=== PATIENT | female | born 1965 | race Caucasian/White ===

== ENCOUNTER 2025-01-22 10:37 | Outpatient (AMB) | payer MEDICAID, SELFPAY ==
[2025-01-22 10:48] VITALS: BP 119/78; PULSE 79; RESP 18; TEMP 36.3; O2SAT 97; BMI 32.1
--- NOTE | 2025-01-22 10:48 | PD.GSCLVISIT ---
Vital Signs - [facility] 01/22/25 10:48 Height 1.69 m Height Method Stated Weight 91.682 kg Weight Measurement Method Standing Scale BMI 32.1 BP 119/78 Blood Pressure Source Automatic Cuff Blood Pressure Location Left Upper Arm Position Sitting Respiration 18 Pulse 79 Pulse Source Monitor Temp 97.3 F Temp Source Temporal Artery Scan Pulse Oximetry (%) 97 Oxygen Delivery Method Room Air Med/Allergies Allergies & Medications Allergies bee venom protein (honey bee) Allergy (Severe, Verified 01/22/25 10:49) Hives Penicillins Allergy (Severe, Verified 01/22/25 10:49) Swelling of Lip/Tongue/Throat Medication Reconciliation cholecalciferol (vitamin D3) 250 mcg (10,000 unit) capsule 10,000 unit PO QWEEK #10 caps 07/15/23 [Rx Confirmed 01/22/25] carvedilol 3.125 mg tablet 3.125 mg PO BID 09/27/23 [History Confirmed 01/22/25] gabapentin 100 mg capsule 100 mg PO QDAY 09/27/23 [History Confirmed 01/22/25] glipizide 5 mg tablet 5 mg PO QDAY 09/27/23 [History Confirmed 01/22/25] hydrochlorothiazide 25 mg tablet 25 mg PO QDAY 09/27/23 [History Confirmed 01/22/25] losartan 100 mg tablet 100 mg PO QDAY 09/27/23 [History Confirmed 01/22/25] omeprazole 20 mg capsule,delayed release 20 mg PO QDAY 09/27/23 [History Confirmed 01/22/25] potassium chloride 20 mEq tablet,extended release(part/cryst) 20 meq PO QDAY 09/27/23 [History Confirmed 01/22/25] acetaminophen 500 mg tablet 500 mg PO Q6H PRN 01/22/25 [History Confirmed 01/22/25] atorvastatin 20 mg tablet 20 mg PO QDAY 01/22/25 [History Confirmed 01/22/25] budesonide 0.5 mg/2 mL suspension for nebulization 0.5 mg inhalation QDAY 01/22/25 [History Confirmed 01/22/25] cetirizine 10 mg tablet 10 mg PO QDAY PRN 01/22/25 [History Confirmed 01/22/25] empagliflozin 5 mg-metformin 500 mg tablet (Synjardy) 1 tab PO BID 01/22/25 [History Confirmed 01/22/25] mirabegron 50 mg tablet,extended release 24 hr (Myrbetriq) 50 mg PO QDAY 01/22/25 [History Confirmed 01/22/25] montelukast 10 mg tablet 10 mg PO QDAY 01/22/25 [History Confirmed 01/22/25] mupirocin 2 % topical ointment 1 applic topical BID 01/22/25 [History Confirmed 01/22/25] semaglutide 1 mg/dose (4 mg/3 mL) subcutaneous pen injector (Ozempic) 1 mg subcut QWEEK 01/22/25 [History Confirmed 01/22/25] theophylline 300 mg tablet,extended release,12 hr 300 mg PO Q12H 01/22/25 [History Confirmed 01/22/25] MA Intake Visit Data Collection New Patient or Established: Established Patient (seen at [facility] within 3 years) Reason for Visit:: GALLSTONES Pain Present Currently: Yes Pain Location: Abdomen Pain scale:: 9 Pain Scale Used: Luong-Gardner/Numerical Laboratory Equipment Installer Required: No PCP or OBGYN visit in last 3 months: Yes Do You Feel Safe at Home: Yes Smoking Status Smoking Status: Never smoker Immunization / Flu Flu Vaccine in the Last 12 Months: No Flu Vaccine Exclusion Criteria: No Exclusion Criteria Past Medical History Past Medical History CARDIAC: Negative Congestive Heart Failure RESPIRATORY: Positive Asthma; Negative Chronic Obstructive Pulmonary Disease (COPD) GENITOURINARY: Negative Renal Disease ENDOCRINE: Negative Diabetes Mellitus Type 1 or Diabetes Mellitus Type 2 OTHER HISTORY: Negative Autoimmune Disease Family History FAMILY HISTORY: Negative Family Psychiatric Problems, Family Respiratory Disorders, Family Cardiac Disorders, Family Gastrointestinal Problems, Family Cancer, Family Surgery or Family Anesthesia Reaction Social History SMOKING STATUS: Smoking status: Never smoker SECOND HAND EXPOSURE: second hand exposure: No ALCOHOL: Alcohol Intake: Never HPI HPI Narrative 59F with HTN, HLD, DMII, obesity, asthma on O2 at home, KERWIN on CPAP here for follow up of cholelithiasis. I saw pt in 09/2023 for the same and recommended pulmonary follow up before proceeding with surgery; per referral and pt she has been seen by a Refrigerator Assembler and deemed an acceptable risk for surgery. Meanwhile pt feels her pain is worse, mostly in the epigastrium but also RUQ, and it is constant not necessarily related to eating PMH: HTN, HLD, DMII, asthma on O2 at home, KERWIN on CPAP PSHx: Appendectomy, Hysterectomy, hernia repairs, bladder lift Meds: includes ASA 81, no other antiplt or anticoagulation Allergies: PCN Social hx: nonsmoker, not able to walk a block or up a flight of stairs due to dyspnea ROS Review of Systems Systems Reviewed: All systems reviewed, normal except as documented Objective/Exam General General Appearance: alert, cooperative and well groomed Resp Respiratory exam: Absent respiratory distress Abdominal Abdominal exam: Present soft and scar (Pfannenstiel incision healed); Absent distention or tenderness Results US reviewed Assessment & Plan Diagnosis / Problem List (1) Symptomatic cholelithiasis: Status: Acute Assessment & Plan: 59F with HTN, HLD, DMII, obesity, asthma on O2 at home, KERWIN on CPAP here for follow up of cholelithiasis. As she has acceptable risk per pulmonology and persistent symptoms I explained that surgery is a reasonable option. I enumerated benefits/risks including need for conversion to open, bleeding, infection, hernia, postoperative diarrhea, and injury to nearby structures requiring further procedures or in the most extreme case a major biliary reconstruction which would require transfer to another hospital. All questions were answered and pt is agreeable to proceeding Office Procedures GNS Level of Care Nursing/Assessment Patient Status: Established Patient Nursing Assessment/Reassesment: Medication Reconciliation, Update PMH in EMR and Vital Signs Coordination of Care: Complex Care/Chronic Disease 5 or more, Education Complex Pt/Fam, Consent,records obtained, informed consent, Results/Orders obtained and Staff clarify orders New Patient Charge New Patient Point Charge: DIRECTOR PHARMACOLOGY Level 3 (4036-1048) Established Patient Charge Established Patient Point Assignment: 105 Patient Portal Questionaires Social History Tobacco History Smoking Status: Never smoker Second Hand Smoke Exposure: No Alcohol History Alcohol Intake: Never Domestic Abuse History Do You Feel Safe at Home: Yes Review of Systems Report any current symptoms Only answer those that you have currently: Past Medical History Past Medical History Have you ever been diagnosed with any of the following: Cardiology Problems Congestive Heart Failure: No Respiratory Problems Chronic Obstructive Pulmonary Disease (COPD): No Asthma: Yes Genital/Urinary Problems Renal Disease: No Endocrine Problems Diabetes Mellitus Type 1: No Diabetes Mellitus Type 2: No Other Problems Autoimmune Disease: No
== END 2025-01-22 11:24 | disposition home or self-care (01) ==
LOC: HODSRG 10:37
PROVIDERS: PCP Family Medicine; Referring Provider Family Medicine; Supervising Provider Surgery; Visit Provider Surgery
DX: K80.20 Calculus of gallbladder without cholecystitis without obstruction (principal); I10 Essential (primary) hypertension; E11.9 Type 2 diabetes mellitus without complications; E66.9 Obesity, unspecified; Z68.32 Body mass index [BMI] 32.0-32.9, adult; J45.909 Unspecified asthma, uncomplicated; Z99.81 Dependence on supplemental oxygen
CPT/HCPCS: 99203; G0463

== ENCOUNTER 2025-02-07 06:55 | Day surgery (SDC) | payer MEDICAID, SELFPAY ==
--- NOTE | 2025-02-06 06:00 | EKG_ITS ---
[facility] Test Date: 2025-02-06 Pat Name: SUSANA PAREKH Department: Room: - Gender: Female Documentation Supervisor: DAVID : [id number] Requested By: Suhas Beltran Order Number: [id number] Reading MD: Suhas Beltran Measurements Intervals Harwood Rate: 87 P: 31 DE: 133 QRS: -23 QRSD: 84 T: 34 QT: 330 QTc: 399 Interpretive Statements SINUS RHYTHM LOW QRS VOLTAGE IN PRECORDIAL LEADS [QRS DEFLECTION < 1.0 mV IN CHEST LEADS] POSSIBLE ANTERIOR MYOCARDIAL INFARCTION , OF INDETERMINATE AGE [30 ms Q WAVE IN V3/V4, OR R < 0.2 mV IN V4] Compared to ECG 02/21/2024 17:09:42 Low QRS voltage now present Myocardial infarct finding now present Sinus tachycardia no longer present /store/S0/[id number]/ecg/[id number].pdf
[2025-02-06 08:44] VITALS: BMI 33.9
[2025-02-06 09:52] LABS: Basophils % (Auto) 0 % (0-2.5); Eosinophils # (Auto) 0.2 Thou/mm3 (0.0-0.5); Eosinophils % (Auto) 3 % (0-10); Hematocrit 45.2 % (36.0-46.0); Hemoglobin 14.5 g/dL (12.0-16.0); Immature Granulocytes % (Auto) 0 % (0-0); Immature Granulocytes Auto 0.02 Thou/mm3 (0.00-0.00); Lymphocytes # (Auto) 1.4 Thou/mm3 (1.0-4.8); Lymphocytes % (Auto) 19 % (10-50); Mean Corpuscular HGB Conc 32.1 g/dl (31.0-37.0); Mean Corpuscular Hemoglobin 25.2 pg (25.0-35.0); Mean Corpuscular Volume 79 fL (80-100); Monocytes # (Auto) 0.5 Thou/mm3 (0.0-0.8); Monocytes % (Auto) 7 % (0-12); Neutrophils # (Auto) 5.3 Thou/mm3 (1.8-7.7); Neutrophils % (Auto) 71 % (37-80); Nucleated Red Blood Cell % 0 /100 WBC (0); Platelet Count 235 Thou/mm3 (140-440); RDW Standard Deviation 41.1 fL (36.4-46.3); Red Blood Count 5.76 Miln/mm3 (4.00-5.20); White Blood Count 7.5 Thou/mm3 (3.6-11.0)
[2025-02-06 10:22] LABS: Alanine Aminotransferase 18 U/L (10-49); Albumin, Serum 4.7 gm/dL (3.4-4.8); Albumin/Globulin Ratio 2.8 (1.2-2.2); Alkaline Phosphatase 88 U/L (46-116); Anion Gap 9 (7-16); Aspartate Amino Transferase 18 U/L (0-34); BUN/Creatinine Ratio 13 Ratio (12-20); Bilirubin,Total 0.7 mg/dL (0.3-1.2); Blood Urea Nitrogen 12 mg/dL (9-23); Carbon Dioxide 31.4 mMol/L (20.0-31.0); Chloride 99 mMol/L (98-107); Creatinine (Component) 0.9 mg/dL (0.6-1.3); Estimated Creatinine Clearance 73.8 mL/min (>60); Globulin 1.7 gm/dL (2.3-3.5); Glucose 160 mg/dL (74-106); Osmolality,Calculated 280 (275-295); Potassium 3.5 mMol/L (3.4-5.1); Sodium 139 mMol/L (136-145); Total Protein 6.4 gm/dL (5.7-8.2); eGFR > 60 See Note
[2025-02-06 10:40] LABS: INR 0.9 (0.9-1.3); Partial Thromboplastin Time 26.2 Seconds (22.0-36.0); Prothrombin Time 10.3 Seconds (9.0-12.2)
[2025-02-07] VITALS (9 sets, daily range): BP systolic 113–134; BP diastolic 65–87; PULSE 69–79; RESP 14–20; TEMP 36.5–36.9; O2SAT 95–100; BMI 34.6
[2025-02-07] MEDS: RINGERS LACTATED 1000 ML 1,000 ML 20 ML IV (08:33)
[2025-02-07] MEDS: ALBUTEROL/IPRATROPIUM (Duoneb) RT SOL 3 ML NEBU INH (08:46)
--- NOTE | 2025-02-07 10:01 | ESOP_ITS ---
Date of Procedure 02/07/25 Pre Op Diagnosis Symptomatic cholelithiasis Post Op Diagnosis Same Procedure Laparoscopic cholecystectomy Findings Distended gallbladder Procedure Description After discussion of risks and benefits, patient was brought to the operating room, SCDs were placed and general anesthesia was induced. She received preope rative antibiotics and was prepped and draped in usual sterile fashion. After timeout a supraumbilical incision was made with a #15 blade and then skin was elevated with towel clamps. A Veress needle was placed through the incision and proper positioning was confirmed with a drop test. It the abdomen was insufflated to 15 mmHg at which point the Veress was exchanged for a 5 mm camera using Visiport technique. There were no signs of injury from the point of entry. 3 additional ports were placed under direct vision, one 12 mm at the epigastrium, one 5 mm right subcostal and one 5 mm right anterior axillary line. Patient was placed in reverse Trendelenburg. The fundus of the gallbladder was grasped and retracted cephalad and the infundibulum was grasped retracted laterally. Blunt dissection was undertaken and the critical view of safety was achieved. The cystic duct and cystic artery were clipped and transected in the usual fashion. There was a small accessory artery at the right sided aspect of the gallbladder bed which began bleeding during the dissection of the gallbladder but it was controlled with clipping. The gallbladder was removed from the gallbladder bed using electrocautery. Hemostasis of the gallbladder bed was achieved with electrocautery and reinforced with Surgicel powder. The specimen was removed in an Endo Catch bag via the epigastric port and the ep igastric fascia was closed with a 0 Vicryl suture using a Pop-Erinn. Pneumoperitoneum was released and ports were removed under direct vision. Incisions were irrigated and infiltrated with half percent Marcaine for a total of 30 cc. Incisions were closed with 4 Monocryl. Patient was extubated and brought to PACU in stable condition Pathology / specimen Other (Gallbladder) Estimated Blood Loss 50 Surgeon Reina Amador MD Surgical Staff Operation Date: 02/07/25 09:15 <No data on this case meets the specified criteria>
--- NOTE | 2025-02-07 10:06 | PD.SURDS ---
Planned Discharge Date 02/07/25 DS: Providers Provider Primary care physician: Kelsey Santos MD Attending Provider on Admission: Reina Amador MD Attending Provider on DC: Reina Amador MD Discharging Provider: Reina Amador MD Diagnosis Discharge Diagnosis (1) Symptomatic cholelithiasis: Status: Acute Problem List Completed Was Problem List Reviewed/Reconciled?: Yes Exam Vital Signs Temp Pulse Resp BP Pulse Ox 97.9 F 76 15 134/75 H 98 02/07/25 07:59 02/07/25 07:59 02/07/25 07:59 02/07/25 07:59 02/07/25 07:59 Discharge Plan Plan Patient Disposition: HOME (Self Care) Prescriptions/Referrals Prescriptions/Med Rec: New oxycodone-acetaminophen [Percocet] 5-325 mg tablet 1 tab PO Q6H MDD 6 tabs PRN (Reason: pain) Qty: 10 0RF Rx Instructions: Take 1 tablet every 4-6 hours as needed for moderate to severe pain No Action atorvastatin 20 mg tablet 20 mg PO QDAY budesonide 0.5 mg/2 mL suspension for nebulization 0.5 mg inhalation BID cetirizine 10 mg tablet 10 mg PO QDAY mirabegron [Myrbetriq] 50 mg tablet extended release 24 hr 50 mg PO QDAY Ozempic 1 mg/dose (4 mg/3 mL) pen injector 1 mg subcut QWEEK montelukast 10 mg tablet 10 mg PO QDAY theophylline 300 mg tablet extended release 12 hr 300 mg PO DAILY acetaminophen 500 mg tablet 500 mg PO Q6H PRN (Reason: pain) glipizide 5 mg tablet 5 mg PO QDAY gabapentin 100 mg capsule 100 mg PO Q12H potassium chloride 20 mEq tablet,ER particles/crystals 20 meq PO QDAY omeprazole 20 mg capsule,delayed release(DR/EC) 40 mg PO QDAY hydrochlorothiazide 25 mg tablet 25 mg PO QDAY losartan 100 mg tablet 100 mg PO QDAY aspirin 81 mg tablet,delayed release (DR/EC) 81 mg PO DAILY Patient Comments: TAKE 1 TABLET BY MOUTH EVERY DAY carvedilol [Coreg] 6.25 mg tablet 6.25 mg PO BID Rx Instructions: must administer with a meal/food umeclidinium-vilanterol [Anoro Ellipta] 62.5-25 mcg/actuation blister with device 1 inh inhalation QDAY albuterol sulfate 90 mcg/actuation HFA aerosol inhaler 2 inh INHALATION Q4H PRN (Reason: shortness of breath or wheezing) cholecalciferol (vitamin D3) 250 mcg (10,000 unit) capsule 10,000 unit PO QWEEK Qty: 10 0RF Referrals: Kelsey Santos MD [Primary Care Provider] - Reina Amador MD [Physician] - (You will receive a phone call to confirm a follow-up appointment with me in 2 weeks) Patient/Caregiver Discharge Instructions Other Discharge Activity Instructions:: You may resume showering in 2 days, on 02/09 Otherwise keep incisions clean and dry Avoid bathing or swimming for 2 weeks Avoid lifting objects greater than 10 pounds for 6 weeks Your incisions have skin glue on them which will fall off on its own and does not need to be replaced Your stitches will not need to be removed During the surgery we fill your abdomen with air in order to see the structures. Some of this air tends to linger and cause pain that is referred to the shoulder as well as pain with deep breaths. This will improve over the next days to weeks. Being out of bed and walking helps the air to absorb faster If you develop worsening pain, nausea/vomiting, fever or jaundice please seek care in ER Education Materials: Preventing Surgical Site Infections Print Language: Colombian Stand Alone Forms: Toya Award Info., Patient Portal Info Letter Discharge Order Discharge Orders: Discharge (Routine); Ordered 02/07/25 Ordered By: Reina Amador Results Results: Laboratory Laboratory results: results reviewed Procedures Procedure Date 02/07/25 Procedures Laparoscopic cholecystectomy
--- NOTE | 2025-02-07 10:10 | SUR.PHASEI ---
pt received from OR in recovery bay 7. pt asleep but responds to voice, breathing unlabored on oxymask 8l. v/s stable. pt dressing to abd dermabond x4 cdi. report received from Ciara JAUREGUI and Kevin CANO.
[2025-02-07] MEDS: HYDROmorphone INJ 2 MG/ML VIAL 0.5 MG IVP (10:36)
[2025-02-07] MEDS: fentaNYL CIT INJ 50 mCg/ML AMP 2ML IVP (10:52)
[2025-02-07] MEDS: fentaNYL CIT INJ 50 mCg/ML AMP 2ML 25 MCG IVP (11:21)
--- NOTE | 2025-02-07 11:42 | SUR.PHASEII ---
pt awake and alert, breathing unlabored on room air. v/s stable. pt dressing to abd dermabond x4 cdi. pt able to ambulate to wheelchair with steady gait. d/c instructions given with property caretaker Lauro in room, all questions answered. pt d/c via wheelchair with all belongings.
== END 2025-02-07 11:42 | disposition home or self-care (01) ==
PROVIDERS: Anesthesiology; PCP Internal Medicine; Referring Provider Surgery; Visit Provider Surgery
PROC: 0FT44ZZ Resection of Gallbladder, Percutaneous Endoscopic Approach (ICD-10-PCS; CPT 47562; principal; 2025-02-07 09:00)
DX: K80.10 Calculus of gallbladder with chronic cholecystitis without obstruction (principal); Z01.810 Encounter for preprocedural cardiovascular examination
CPT/HCPCS: 47562; 36415; 80053; 85025; 85610; 85730; 93005; A4217; A4649; A9270; J0131; J0330; J0736; J1100; J1171; J2371; J2405; J2704; J3010; J3490; J7120

== ENCOUNTER 2025-02-15 18:23 | Emergency (ER) | payer MEDICAID, SELFPAY ==
[2025-02-15 19:21] VITALS: BP 127/78; PULSE 83; RESP 18; TEMP 36.6; O2SAT 96
--- NOTE | 2025-02-15 19:34 | PD.EDRME ---
Rapid Medical Screening Exam [facility] Arrival date/time: 02/15/25 18:23 59F with history of DM and recent cholecystectomy presents to ED with fevers/chills and worsening pain and incision site. Chief Complaint: General Adult/Misc Complain Vital signs: Vital Signs Temperature 97.9 F 02/15/25 19:21 Pulse Rate 83 02/15/25 19:21 Respiratory Rate 18 02/15/25 19:21 Blood Pressure 127/78 02/15/25 19:21 Pulse Oximetry (%) 96 02/15/25 19:21 Oxygen Delivery Method Room Air 02/15/25 19:21
[2025-02-15 20:00] LABS: Lactate (Lactic Acid) 1.1 mMol/L (0.4-2.0)
[2025-02-15 20:02] LABS: Basophils # (Auto) 0.1 Thou/mm3 (0.0-0.2); Basophils % (Auto) 1 % (0-2.5); Eosinophils # (Auto) 0.6 Thou/mm3 (0.0-0.5); Eosinophils % (Auto) 6 % (0-10); Hematocrit 41.7 % (36.0-46.0); Immature Granulocytes % (Auto) 1 % (0-0); Immature Granulocytes Auto 0.05 Thou/mm3 (0.00-0.00); Lymphocytes # (Auto) 2.6 Thou/mm3 (1.0-4.8); Lymphocytes % (Auto) 23 % (10-50); Mean Corpuscular HGB Conc 33.6 g/dl (31.0-37.0); Mean Corpuscular Hemoglobin 25.3 pg (25.0-35.0); Mean Corpuscular Volume 75 fL (80-100); Monocytes # (Auto) 0.9 Thou/mm3 (0.0-0.8); Monocytes % (Auto) 9 % (0-12); Neutrophils # (Auto) 6.8 Thou/mm3 (1.8-7.7); Neutrophils % (Auto) 62 % (37-80); Nucleated Red Blood Cell % 0 /100 WBC (0); Platelet Count 262 Thou/mm3 (140-440); RDW Standard Deviation 39.5 fL (36.4-46.3); Red Blood Count 5.54 Miln/mm3 (4.00-5.20); White Blood Count 11.1 Thou/mm3 (3.6-11.0)
[2025-02-15 20:30] LABS: Alanine Aminotransferase 23 U/L (10-49); Albumin, Serum 4.5 gm/dL (3.4-4.8); Albumin/Globulin Ratio 2.3 (1.2-2.2); Alkaline Phosphatase 91 U/L (46-116); Anion Gap 8 (7-16); Aspartate Amino Transferase 18 U/L (0-34); BUN/Creatinine Ratio 13 Ratio (12-20); Bilirubin,Total 0.6 mg/dL (0.3-1.2); Blood Urea Nitrogen 13 mg/dL (9-23); Calcium 9.4 mg/dL (8.3-10.6); Calcium (Corrected) 9.4 mg/dL (8.5-10.1); Carbon Dioxide 30.8 mMol/L (20.0-31.0); Chloride 102 mMol/L (98-107); Glucose 78 mg/dL (74-106); Osmolality,Calculated 280 (275-295); Potassium 3.4 mMol/L (3.4-5.1); Procalcitonin < 0.04 ng/ml (0.0-0.49); Sodium 141 mMol/L (136-145); Total Protein 6.5 gm/dL (5.7-8.2); eGFR > 60 See Note
--- NOTE | 2025-02-15 22:22 | PD.EDFEVER ---
ED Fever RME/HPI General Chief Complaint: General Adult/Misc Complain Stated Complaint: [facility] @ [facility]; FEVER 100.6 THIS AFTERNOON Arrival date/time: 02/15/25 18:23 RME / HPI RME / HPI Narrative: 02/15/25 18:23 59F with history of DM and recent cholecystectomy presents to ED with fevers/chills and worsening pain and incision site. --------- Dr. Varner?s Main ED Evaluation: 59yo female with a history of DMII, HTN, HLD, s/p cholecystectomy on 02/07/25 presents to the ED for a chief complaint of worsening pain to her incision site. Patient states she started noticing her incision site was turning red today, reporting she was concerned it started to drain, so she came in for evaluation. Patient reports associated fever, diarrhea (that has gotten better), and a chronic cough. Patient denies any chills, shortness of breath, chest pain, worsening abdominal pain, UTI symptoms or any other associated symptoms. Related Data Home Medications ?Medication ?Instructions ?Recorded ?Confirmed gabapentin 100 mg capsule 100 mg PO Q12H 09/27/23 02/07/25 glipizide 5 mg tablet 5 mg PO QDAY 09/27/23 02/07/25 hydrochlorothiazide 25 mg tablet 25 mg PO QDAY 09/27/23 02/07/25 losartan 100 mg tablet 100 mg PO QDAY 09/27/23 02/07/25 omeprazole 20 mg capsule,delayed 40 mg PO QDAY 09/27/23 02/07/25 release potassium chloride 20 mEq 20 meq PO QDAY 09/27/23 02/07/25 tablet,extended release(part/cryst) acetaminophen 500 mg tablet 500 mg PO Q6H PRN pain 01/22/25 02/07/25 atorvastatin 20 mg tablet 20 mg PO QDAY 01/22/25 02/07/25 budesonide 0.5 mg/2 mL suspension 0.5 mg inhalation BID 01/22/25 02/07/25 for nebulization cetirizine 10 mg tablet 10 mg PO QDAY 01/22/25 02/07/25 mirabegron 50 mg tablet,extended 50 mg PO QDAY 01/22/25 02/07/25 release 24 hr (Myrbetriq) montelukast 10 mg tablet 10 mg PO QDAY 01/22/25 02/07/25 semaglutide 1 mg/dose (4 mg/3 mL) 1 mg subcut QWEEK 01/22/25 02/06/25 subcutaneous pen injector (Ozempic) theophylline 300 mg 300 mg PO DAILY 01/22/25 02/07/25 tablet,extended release,12 hr albuterol sulfate 90 mcg/actuation 2 inh inhalation Q4H PRN shortness 02/06/25 02/07/25 aerosol inhaler of breath or wheezing aspirin 81 mg tablet,delayed 81 mg PO DAILY 02/06/25 02/07/25 release carvedilol 6.25 mg tablet (Coreg) 6.25 mg PO BID 02/06/25 02/07/25 umeclidinium 62.5 mcg-vilanterol 1 inh inhalation QDAY 02/06/25 02/07/25 25 mcg/actuation powdr for inhalation (Anoro Ellipta) Previous Rx's ?Medication ?Instructions ?Recorded cholecalciferol (vitamin D3) 250 10,000 unit PO QWEEK #10 caps 07/15/23 mcg (10,000 unit) capsule oxycodone-acetaminophen 5 mg-325 1 tab PO Q6H PRN pain #10 tabs 02/07/25 mg tablet (Percocet) Lactobacillus acidophilus 1 1,000 mmu cells PO QDAY #30 caps 02/14/25 billion cell capsule doxycycline hyclate 100 mg tablet 100 mg PO QDAY cellulitis #6 tabs 02/14/25 oxycodone-acetaminophen 5 mg-325 1 tab PO Q6H PRN pain #20 tabs 02/14/25 mg tablet (Percocet) Allergies Allergy/AdvReac Type Severity Reaction Status Date / Time bee venom protein (honey bee) Allergy Severe Hives Verified 02/15/25 18:27 Penicillins Allergy Severe Swelling Verified 02/15/25 18:27 of Lip/Tongue/Throat Review of Systems Review of Systems Systems Reviewed: All systems reviewed, normal except as documented Past Medical History Past Medical History NEUROLOGIC: Negative Neurological Disorders or Seizures CARDIAC: Positive Cardiac Disorders, Hypercholesterolemia and Hypertension; Negative Congestive Heart Failure RESPIRATORY: Positive Chronic Obstructive Pulmonary Disease (COPD), Asthma, Pneumonia and Sleep Apnea GASTROINTESTINAL: Positive Gastrointestinal Disorders and Obesity; Negative Hepatitis GENITOURINARY: Negative Genitourinary Disorders or Renal Disease REPRODUCTIVE: Positive Previous Pregnancies (3) MUSCULOSKELETAL: Positive Musculoskeletal Disorders ENT: Positive Cataracts (right eye) ENDOCRINE: Positive Endocrine Disorders and Diabetes Mellitus Type 2; Negative Diabetes Mellitus Type 1 HEMATOLOGIC: Negative Blood Disorders OTHER HISTORY: Positive Hospitalization (Asthma), Developmental Delay (Mild intellectual disability) and Chicken Pox; Negative Autoimmune Disease, Shingles, Blood Transfusions, Anesthesia Reactions or Cancer Family History FAMILY HISTORY: Positive Family Cardiac Disorders and Family Surgery; Negative Family Psychiatric Problems, Family Respiratory Disorders, Family Gastrointestinal Problems, Family Cancer or Family Anesthesia Reaction Surgical History SURGICAL: Positive Abdominal Surgery and Tubal Ligation Social History SMOKING STATUS: Never smoker SECOND HAND EXPOSURE: No SUBSTANCE USE: does not use Physical Exam Narrative Physical exam: GENERAL APPEARANCE: alert and oriented x 4, well-developed, well-nourished, no acute distress VITALS: All vitals were reviewed and the pulse ox is 96% on room air, which is normal according to my interpretation. HEENT: Normocephalic, atraumatic; pupils equal, round, reactive to light; EOMI; mucous membranes pink, moist; oropharynx clear NECK: Supple LUNGS: CTABL; no wheezes, no rales, no rhonchi HEART: Regular rate, regular rhythm; normal S1, S2; no murmurs ABDOMEN: non distended; normal BS; soft, no tenderness, no guarding, no rebound; no masses, no organomegaly, no hernia BACK: no CVA tenderness EXTREMITIES: atraumatic; no edema NEUROLOGIC: awake; alert and oriented x4; cranial nerves II-XII grossly intact; no focal sensory or motor deficits PSYCHIATRIC: appropriate mood and affect SKIN: warm, dry, normal color; skin erythema at the area of the skin adhesive (from cholecystectomy) with minimal amount of serous fluid expressed Course Quality Measures none Orders Category Date Time Status Bedside COVID-19 Antigen Test NOW Care 02/15/25 19:33 Active Bedside Influenza A&B Antigen Test NOW Care 02/15/25 19:33 Completed CBC Stat Lab 02/15/25 19:44 Completed CMP [Comprehensive Metabolic Panel] Stat Lab 02/15/25 19:44 Completed Lactate (Lactic Acid) Stat Lab 02/15/25 19:44 Completed Procalcitonin Stat Lab 02/15/25 19:44 Completed Vital Signs Vital signs: Vital Signs Temperature 97.9 F 02/15/25 19:21 Pulse Rate 83 06/12/25 19:21 Respiratory Rate 18 02/15/25 19:21 Blood Pressure 127/78 02/15/25 19:21 Pulse Oximetry (%) 96 02/15/25 19:21 Oxygen Delivery Method Room Air 02/15/25 19:21 Fever MDM Narrative MDM Narrative:: Scribe Attestation: 02/15/25 - Shanta Sanchez am scribing for and in the presence of Dr. Varner. Patient does not meet sepsis/SIRS criteria at this time. She is not having any worsening abdominal pain and endorses her incisional pain is now controlled. Patient is stable to be discharged home. Patient data External records reviewed:: [facility] previous records (Per chart review, patient is s/p cholecystectomy on 02/07/25.) Clinical information provided by:: patient Social determinants that could affect healthcare access:: none Patient has the following chronic illnesses:: DMII, HTN, HLD How is presenting disease/condition affected by chronic disease/condition?: uneffected by Evaluation data The following diagnostics were reviewed and interpreted by me:: lab results Lab and/or radiology exams considered but not ordered:: none Interpretation Summary: WBC 11.1, CMP normal, Lactic Acid normal, Procalcitonin normal/ Medications / Prescriptions Medications or Prescriptions considered but not ordered:: none Medication administrations:: see above, if any Consultations Consultation(s) initiated? (list below): No Diagnosis Fever Differential Diagnosis: other (skin irritation, skin infection, post surgical infection, wound infection, abdominal abscess) Most likely diagnosis given after review of the tests above:: see clinical impression below Admission Indicated Admission indicated?: not indicated Explain why admission is indicated or not indicated:: Patient is stable to be discharged home. Patient does not meet sepsis criteria. Admission Request Was there a request for admission?: No Disposition Plan Disposition Plan: Discharge Discharge Attestation Discharge Attestation: The patient and all family members were given an opportunity to ask questions and understood the discharge instructions. Discharge instructions specifically effects, indications for sooner follow up or return to the emergency department, and the expected course of current diagnosis. Patient condition: Stable Discharge Plan Prescriptions/Referrals Prescriptions/Med Rec: No Action atorvastatin 20 mg tablet 20 mg PO QDAY budesonide 0.5 mg/2 mL suspension for nebulization 0.5 mg inhalation BID cetirizine 10 mg tablet 10 mg PO QDAY mirabegron [Myrbetriq] 50 mg tablet extended release 24 hr 50 mg PO QDAY Ozempic 1 mg/dose (4 mg/3 mL) pen injector 1 mg subcut QWEEK montelukast 10 mg tablet 10 mg PO QDAY theophylline 300 mg tablet extended release 12 hr 300 mg PO DAILY acetaminophen 500 mg tablet 500 mg PO Q6H PRN (Reason: pain) glipizide 5 mg tablet 5 mg PO QDAY gabapentin 100 mg capsule 100 mg PO Q12H potassium chloride 20 mEq tablet,ER particles/crystals 20 meq PO QDAY omeprazole 20 mg capsule,delayed release(DR/EC) 40 mg PO QDAY hydrochlorothiazide 25 mg tablet 25 mg PO QDAY losartan 100 mg tablet 100 mg PO QDAY aspirin 81 mg tablet,delayed release (DR/EC) 81 mg PO DAILY Patient Comments: TAKE 1 TABLET BY MOUTH EVERY DAY carvedilol [Coreg] 6.25 mg tablet 6.25 mg PO BID Rx Instructions: must administer with a meal/food umeclidinium-vilanterol [Anoro Ellipta] 62.5-25 mcg/actuation blister with device 1 inh inhalation QDAY albuterol sulfate 90 mcg/actuation HFA aerosol inhaler 2 inh INHALATION Q4H PRN (Reason: shortness of breath or wheezing) oxycodone-acetaminophen [Percocet] 5-325 mg tablet 1 tab PO Q6H MDD 6 tabs PRN (Reason: pain) Qty: 10 0RF Rx Instructions: Take 1 tablet every 4-6 hours as needed for moderate to severe pain Lactobacillus acidophilus 1 billion cell capsule 1,000 mmu cells PO QDAY Qty: 30 0RF doxycycline hyclate 100 mg tablet 100 mg PO QDAY Qty: 6 0RF Rx Instructions: Take two (2) tablets today, and then one tablet each day until completed oxycodone-acetaminophen [Percocet] 5-325 mg tablet 1 tab PO Q6H MDD 6 tabs PRN (Reason: pain) Qty: 20 0RF cholecalciferol (vitamin D3) 250 mcg (10,000 unit) capsule 10,000 unit PO QWEEK Qty: 10 0RF Referrals: Nilo Kern MD [Primary Care Provider] - In 1 week Patient/Caregiver Discharge Instructions Print Language: Belarusian
[2025-02-15 22:54] VITALS: RESP 18
== END 2025-02-15 22:55 | disposition home or self-care (01) ==
PROVIDERS: Physician Assistant; Emergency Provider Emergency Medicine; PCP Family Medicine
DX: R50.9 Fever, unspecified (principal); E11.9 Type 2 diabetes mellitus without complications; E78.5 Hyperlipidemia, unspecified; I10 Essential (primary) hypertension; Z90.49 Acquired absence of other specified parts of digestive tract
CPT/HCPCS: 36415; 80053; 83605; 84145; 85025; 87400; 87811; 99283

== ENCOUNTER 2025-02-19 10:30 | Outpatient (AMB) | payer MEDICAID, SELFPAY ==
[2025-02-19 10:53] VITALS: BP 109/73; PULSE 85; RESP 19; TEMP 35.8; O2SAT 95; BMI 31.3
--- NOTE | 2025-02-19 10:53 | PD.GSCLVISIT ---
Vital Signs - [facility] 02/19/25 10:53 Height 1.69 m Height Method Stated Weight 89.471 kg Weight Measurement Method Standing Scale BMI 31.3 BP 109/73 Blood Pressure Source Automatic Cuff Blood Pressure Location Left Upper Arm Position Sitting Respiration 19 Pulse 85 Pulse Source Monitor Temp 96.4 F L Temp Source Temporal Artery Scan Pulse Oximetry (%) 95 Oxygen Delivery Method Room Air Med/Allergies Allergies & Medications Allergies bee venom protein (honey bee) Allergy (Severe, Verified 02/19/25 10:54) Hives Penicillins Allergy (Severe, Verified 02/19/25 10:54) Swelling of Lip/Tongue/Throat Medication Reconciliation cholecalciferol (vitamin D3) 250 mcg (10,000 unit) capsule 10,000 unit PO QWEEK #10 caps 07/15/23 [Rx Confirmed 02/07/25] gabapentin 100 mg capsule 100 mg PO Q12H 09/27/23 [History Confirmed 02/07/25] glipizide 5 mg tablet 5 mg PO QDAY 09/27/23 [History Confirmed 02/07/25] hydrochlorothiazide 25 mg tablet 25 mg PO QDAY 09/27/23 [History Confirmed 02/07/25] losartan 100 mg tablet 100 mg PO QDAY 09/27/23 [History Confirmed 02/07/25] omeprazole 20 mg capsule,delayed release 40 mg PO QDAY 09/27/23 [History Confirmed 02/07/25] potassium chloride 20 mEq tablet,extended release(part/cryst) 20 meq PO QDAY 09/27/23 [History Confirmed 02/07/25] acetaminophen 500 mg tablet 500 mg PO Q6H PRN pain 01/22/25 [History Confirmed 02/07/25] atorvastatin 20 mg tablet 20 mg PO QDAY 01/22/25 [History Confirmed 02/07/25] budesonide 0.5 mg/2 mL suspension for nebulization 0.5 mg inhalation BID 01/22/25 [History Confirmed 02/07/25] cetirizine 10 mg tablet 10 mg PO QDAY 01/22/25 [History Confirmed 02/07/25] mirabegron 50 mg tablet,extended release 24 hr (Myrbetriq) 50 mg PO QDAY 01/22/25 [History Confirmed 02/07/25] montelukast 10 mg tablet 10 mg PO QDAY 01/22/25 [History Confirmed 02/07/25] semaglutide 1 mg/dose (4 mg/3 mL) subcutaneous pen injector (Ozempic) 1 mg subcut QWEEK 01/22/25 [History Confirmed 02/06/25] theophylline 300 mg tablet,extended release,12 hr 300 mg PO DAILY 01/22/25 [History Confirmed 02/07/25] albuterol sulfate 90 mcg/actuation aerosol inhaler 2 inh inhalation Q4H PRN shortness of breath or wheezing 02/06/25 [History Confirmed 02/07/25] aspirin 81 mg tablet,delayed release 81 mg PO DAILY 02/06/25 [History Confirmed 02/07/25] carvedilol 6.25 mg tablet (Coreg) 6.25 mg PO BID 02/06/25 [History Confirmed 02/07/25] umeclidinium 62.5 mcg-vilanterol 25 mcg/actuation powdr for inhalation (Anoro Ellipta) 1 inh inhalation QDAY 02/06/25 [History Confirmed 02/07/25] Lactobacillus acidophilus 1 billion cell capsule 1,000 mmu cells PO QDAY #30 caps 02/14/25 [Rx] doxycycline hyclate 100 mg tablet 100 mg PO QDAY cellulitis #6 tabs 02/14/25 [Rx] oxycodone-acetaminophen 5 mg-325 mg tablet (Percocet) 1 tab PO Q6H PRN pain #20 tabs 02/14/25 [Rx] MA Intake Visit Data Collection New Patient or Established: Established Patient (seen at [facility] within 3 years) Seen by Clinical Staff ONLY (RN/MA): No Reason for Visit:: LAP SACHIN F/U Pain Present Currently: Yes Pain Location: Abdomen Pain scale:: 1 PCP or OBGYN visit in last 3 months: Yes Hx Now: No Do You Feel Safe at Home: Yes Authorities Contacted: N/A Smoking Status Smoking Status: Never smoker Immunization / Flu Flu Vaccine in the Last 12 Months: No Flu Vaccine Exclusion Criteria: No Exclusion Criteria Past Medical History Past Medical History NEUROLOGIC: Negative Neurological Disorders or Seizures CARDIAC: Positive Cardiac Disorders, Hypercholesterolemia and Hypertension; Negative Congestive Heart Failure RESPIRATORY: Positive Chronic Obstructive Pulmonary Disease (COPD), Asthma, Pneumonia and Sleep Apnea GASTROINTESTINAL: Positive Gastrointestinal Disorders and Obesity; Negative Hepatitis GENITOURINARY: Negative Genitourinary Disorders or Renal Disease REPRODUCTIVE: Positive Previous Pregnancies (3) ENT: Positive Cataracts (right eye) ENDOCRINE: Positive Endocrine Disorders and Diabetes Mellitus Type 2; Negative Diabetes Mellitus Type 1 HEMATOLOGIC: Negative Blood Disorders OTHER HISTORY: Positive Hospitalization (Asthma), Developmental Delay (Mild intellectual disability) and Chicken Pox; Negative Autoimmune Disease, Shingles, Blood Transfusions, Anesthesia Reactions or Cancer Family History FAMILY HISTORY: Positive Family Cardiac Disorders and Family Surgery; Negative Family Psychiatric Problems, Family Respiratory Disorders, Family Gastrointestinal Problems, Family Cancer or Family Anesthesia Reaction Surgical History SURGICAL: Positive Abdominal Surgery and Tubal Ligation Social History SMOKING STATUS: Smoking status: Never smoker SECOND HAND EXPOSURE: second hand exposure: No ALCOHOL: Alcohol Intake: Never HOUSING: Housing: Apartment HPI HPI Narrative 59F s/p lap cholecystectomy 02/07/25 here for planned follow up. Last week pt was having diarrhea and redness of her epigastric incision; I had prescribed oral antibiotics which are now completed. Pt states she feels much better now, with minimal RUQ pain improved with tylenol, no fever, no nausea, she is eating well and her BMs have normalized ROS Review of Systems Systems Reviewed: All systems reviewed, normal except as documented Objective/Exam General General Appearance: alert, cooperative and well groomed Resp Respiratory exam: Absent respiratory distress Abdominal Abdominal exam: Present soft and incision (c/d/i, no erythema, no fluctuance or tenderness); Absent distention or tenderness Results Pathology of gallbladder: chronic cholecystitis with cholelithiasis Assessment & Plan Diagnosis / Problem List (1) Symptomatic cholelithiasis: Status: Acute Assessment & Plan: 59F s/p lap sachin 02/07 with findings of chronic cholecystitis, recovering well Plan: Follow up as needed Office Procedures GNS Level of Care Nursing/Assessment Patient Status: Established Patient Nursing Assessment/Reassesment: Medication Reconciliation, Update PMH in EMR and Vital Signs Coordination of Care: Complex Care and Chronic Disease 1-5, Consent,records obtained, informed consent, Education Simp Pt/Fam, Results/Orders obtained and Staff clarify orders Established Patient Charge Established Patient Point Assignment: 90 Established Patient Point Charge: EP Level 3 (80-115) Patient Portal Questionaires Social History Living Situation History Housing: Apartment Tobacco History Smoking Status: Never smoker Second Hand Smoke Exposure: No Alcohol History Alcohol Intake: Never Domestic Abuse History Do You Feel Safe at Home: Yes Review of Systems Report any current symptoms Only answer those that you have currently: Past Medical History Past Medical History Have you ever been diagnosed with any of the following: Neurological Problems Seizures: No Cardiology Problems Hypercholesterolemia: Yes Congestive Heart Failure: No Hypertension: Yes Respiratory Problems Chronic Obstructive Pulmonary Disease (COPD): Yes Asthma: Yes Pneumonia: Yes Sleep Apnea: Yes Stomache/Intestinal Problems Hepatitis: No Obesity: Yes Genital/Urinary Problems Renal Disease: No Reproductive Problems Previous Pregnancies: Yes (3) Head,Eye,Nose,Throat Problems Cataracts: Yes (right eye) Endocrine Problems Diabetes Mellitus Type 1: No Diabetes Mellitus Type 2: Yes Other Problems Hospitalization: Yes (Asthma) Autoimmune Disease: No Developmental Delay: Yes (Mild intellectual disability) Shingles: No Blood Transfusions: No Anesthesia Reactions: No Chicken Pox: Yes Cancer: No
== END 2025-02-19 11:11 | disposition home or self-care (01) ==
LOC: HODSRG 10:30
PROVIDERS: PCP Internal Medicine; Referring Provider Internal Medicine; Supervising Provider Surgery; Visit Provider Surgery
DX: Z48.815 Encounter for surgical aftercare following surgery on the digestive system (principal); I10 Essential (primary) hypertension; E78.00 Pure hypercholesterolemia, unspecified; J44.9 Chronic obstructive pulmonary disease, unspecified; E11.9 Type 2 diabetes mellitus without complications
CPT/HCPCS: 99213; G0463

== ENCOUNTER 2025-03-14 18:49 | Emergency (ER) | payer MEDICAID, SELFPAY ==
[2025-03-14 19:44] VITALS: BP 122/80; PULSE 103; RESP 20; TEMP 36.8; O2SAT 99; BMI 32.8
--- NOTE | 2025-03-14 19:50 | EKG_ITS ---
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: : 1965 Requested By: Mehid Riojas Order Number: [id number] Reading MD: Mehdi Riojas Measurements Intervals [place] Rate: 102 P: 46 AL: 134 QRS: 94 QRSD: 88 T: 36 QT: 328 QTc: 428 Interpretive Statements SINUS TACHYCARDIA BORDERLINE RIGHT AXIS DEVIATION [QRS AXIS > 90] LOW QRS VOLTAGE IN PRECORDIAL LEADS [QRS DEFLECTION < 1.0 mV IN CHEST LEADS] POSSIBLE ANTERIOR MYOCARDIAL INFARCTION , PROBABLY OLD [30 ms Q WAVE IN V3/V4, OR R < 0.2 mV IN V4] ABNORMAL RHYTHM ECG Compared to ECG 02/06/2025 09:15:39 Sinus rhythm no longer present Myocardial infarct finding still present /store/S0/[id number]/ecg/[id number].pdf
--- NOTE | 2025-03-14 19:50 | XR_ITS ---
Examination: PA chest single view TECHNIQUE: Upright PA chest single view Date and time: March 14, 20252007 hours INDICATIONS: Worsening right upper abdominal pain today, history COPD hypertension diabetes FINDINGS: Normal heart size Lungs are clear The osseous structures are intact IMPRESSION: No active disease
--- NOTE | 2025-03-14 19:51 | PD.EDRME ---
Rapid Medical Screening Exam E Arrival date/time: 03/14/25 18:49 60F with history of COPD, HTN, DM, and lap sachin last month presents to ED with 1 day of worsening RUQ pain. Chief Complaint: Abdominal Pain Vital signs: Vital Signs Temperature 98.3 F 03/14/25 19:44 Pulse Rate 103 H 03/14/25 19:44 Respiratory Rate 20 03/14/25 19:44 Blood Pressure 122/80 03/14/25 19:44 Pulse Oximetry (%) 99 03/14/25 19:44 Oxygen Delivery Method Room Air 03/14/25 19:44
--- NOTE | 2025-03-14 19:52 | XR_ITS ---
Examination: Abdomen sonogram, Limited Date and time of exam: March 14, 2025, 2046 hours INDICATIONS: Right upper abdomen pain today, status post cholecystectomy one month ago Technique: Real-time bernal scale transabdominal sonographic images of the upper abdomen obtained. Findings: Absent gallbladder Normal common bile duct 0.6 cm Pancreatic head 3.0 cm Liver 15.7 cm fatty infiltration Normal hepatopedal portal venous flow, portal vein measures 1.4 cm Patent IVC IMPRESSION: Absent gallbladder. Negative for common bile duct stones
[2025-03-14 20:09] LABS: Lactate (Lactic Acid) 2.0 mMol/L (0.4-2.0)
[2025-03-14 20:10] LABS: Basophils # (Auto) 0.0 Thou/mm3 (0.0-0.2); Basophils % (Auto) 0 % (0-2.5); Eosinophils # (Auto) 0.2 Thou/mm3 (0.0-0.5); Eosinophils % (Auto) 2 % (0-10); Hematocrit 45.2 % (36.0-46.0); Hemoglobin 14.4 g/dL (12.0-16.0); Immature Granulocytes Auto 0.02 Thou/mm3 (0.00-0.00); Lymphocytes # (Auto) 2.5 Thou/mm3 (1.0-4.8); Lymphocytes % (Auto) 26 % (10-50); Mean Corpuscular HGB Conc 31.9 g/dl (31.0-37.0); Mean Corpuscular Hemoglobin 25.4 pg (25.0-35.0); Mean Corpuscular Volume 80 fL (80-100); Monocytes # (Auto) 0.6 Thou/mm3 (0.0-0.8); Monocytes % (Auto) 7 % (0-12); Neutrophils # (Auto) 6.2 Thou/mm3 (1.8-7.7); Neutrophils % (Auto) 65 % (37-80); Nucleated Red Blood Cell # 0.00 Thou/mm3 (0.00-0.00); Nucleated Red Blood Cell % 0 /100 WBC (0); Platelet Count 236 Thou/mm3 (140-440); RDW Standard Deviation 41.9 fL (36.4-46.3); Red Blood Count 5.66 Miln/mm3 (4.00-5.20); White Blood Count 9.5 Thou/mm3 (3.6-11.0)
[2025-03-14 20:38] LABS: B-Type Natriuretic Peptide < 20 pg/mL (0-100)
[2025-03-14] MEDS: HYDROcodone/APAP 5/325 TABLET 1 TAB PO (20:43)
[2025-03-14 20:47] LABS: Alanine Aminotransferase 21 U/L (10-49); Albumin, Serum 4.4 gm/dL (3.4-4.8); Albumin/Globulin Ratio 2.1 (1.2-2.2); Alkaline Phosphatase 77 U/L (46-116); Anion Gap 11 (7-16); Aspartate Amino Transferase 21 U/L (0-34); BUN/Creatinine Ratio 13 Ratio (12-20); Bilirubin,Total 0.8 mg/dL (0.3-1.2); Blood Urea Nitrogen 13 mg/dL (9-23); Calcium 9.9 mg/dL (8.3-10.6); Calcium (Corrected) 9.9 mg/dL (8.5-10.1); Carbon Dioxide 29.9 mMol/L (20.0-31.0); Chloride 101 mMol/L (98-107); Creatinine (Component) 1.0 mg/dL (0.6-1.3); Estimated Creatinine Clearance 66.7 mL/min (>60); Globulin 2.1 gm/dL (2.3-3.5); Glucose 144 mg/dL (74-106); Lipase 53 U/L (12-53); Osmolality,Calculated 286 (275-295); Potassium 3.2 mMol/L (3.4-5.1); Procalcitonin < 0.04 ng/ml (0.0-0.49); Sodium 142 mMol/L (136-145); Total Protein 6.5 gm/dL (5.7-8.2); Troponin I < 0.002 ng/mL (0.0-0.045); eGFR > 60 See Note
[2025-03-14 21:06] LABS: D-Dimer < 250 ng/mL (<600)
--- NOTE | 2025-03-14 21:18 | PD.EDABDPN ---
ED Abdominal Pain RME/HPI General Chief Complaint: Abdominal Pain Stated complaint: Right upper quadrant abdominal pain since 0 Time seen by provider: 03/14/25 19:59 Arrival date/time: 03/14/25 18:49 RME / HPI RME / HPI narrative: 03/14/25 18:49 60F with history of COPD, HTN, DM, and lap sachin last month presents to ED with 1 day of worsening RUQ pain. DR. LAWSON MAIN ED EVALUATION: 60 y/o female presents s/p recent laproscopic cholecystectomy in February 2025, now with sudden onset right lower anterior chest/RUQ abdominal pain awakening her at 4 AM. Pain is constant in nature throughout the day with pleuritic component. Denies fever, chills, nausea, vomiting, and diarrhea. Increasing pain with rotation of the torso. PE risk factors, positive for cholecystitis, negative FHx of DVT and PE. No prolonged demobilization and negative FHx. No other concerns or complaints expressed at this time. Related Data Home Medications ?Medication ?Instructions ?Recorded ?Confirmed gabapentin 100 mg capsule 100 mg PO Q12H 09/27/23 02/07/25 glipizide 5 mg tablet 5 mg PO QDAY 09/27/23 02/07/25 hydrochlorothiazide 25 mg tablet 25 mg PO QDAY 09/27/23 02/07/25 losartan 100 mg tablet 100 mg PO QDAY 09/27/23 02/07/25 omeprazole 20 mg capsule,delayed 40 mg PO QDAY 09/27/23 02/07/25 release potassium chloride 20 mEq 20 meq PO QDAY 09/27/23 02/07/25 tablet,extended release(part/cryst) acetaminophen 500 mg tablet 500 mg PO Q6H PRN pain 01/22/25 02/07/25 atorvastatin 20 mg tablet 20 mg PO QDAY 01/22/25 02/07/25 budesonide 0.5 mg/2 mL suspension 0.5 mg inhalation BID 01/22/25 02/07/25 for nebulization cetirizine 10 mg tablet 10 mg PO QDAY 01/22/25 02/07/25 mirabegron 50 mg tablet,extended 50 mg PO QDAY 01/22/25 02/07/25 release 24 hr (Myrbetriq) montelukast 10 mg tablet 10 mg PO QDAY 01/22/25 02/07/25 semaglutide 1 mg/dose (4 mg/3 mL) 1 mg subcut QWEEK 01/22/25 02/06/25 subcutaneous pen injector (Ozempic) theophylline 300 mg 300 mg PO DAILY 01/22/25 02/07/25 tablet,extended release,12 hr albuterol sulfate 90 mcg/actuation 2 inh inhalation Q4H PRN shortness 02/06/25 02/07/25 aerosol inhaler of breath or wheezing aspirin 81 mg tablet,delayed 81 mg PO DAILY 02/06/25 02/07/25 release carvedilol 6.25 mg tablet (Coreg) 6.25 mg PO BID 02/06/25 02/07/25 umeclidinium 62.5 mcg-vilanterol 1 inh inhalation QDAY 02/06/25 02/07/25 25 mcg/actuation powdr for inhalation (Anoro Ellipta) Previous Rx's ?Medication ?Instructions ?Recorded cholecalciferol (vitamin D3) 250 10,000 unit PO QWEEK #10 caps 07/15/23 mcg (10,000 unit) capsule Lactobacillus acidophilus 1 1,000 mmu cells PO QDAY #30 caps 02/14/25 billion cell capsule doxycycline hyclate 100 mg tablet 100 mg PO QDAY cellulitis #6 tabs 02/14/25 oxycodone-acetaminophen 5 mg-325 1 tab PO Q6H PRN pain #20 tabs 02/14/25 mg tablet (Percocet) cyclobenzaprine 5 mg tablet 5 mg PO TID PRN muscle spasm #15 03/15/25 tabs naproxen 500 mg tablet (Naprosyn) 250 mg (1/2 x 500 mg) PO BID 5 03/15/25 days #5 tabs oxycodone-acetaminophen 5 mg-325 1 tab PO BID PRN pain #14 tabs 03/15/25 mg tablet Allergies Allergy/AdvReac Type Severity Reaction Status Date / Time bee venom protein (honey bee) Allergy Severe Hives Verified 03/14/25 18:53 Penicillins Allergy Severe Swelling Verified 03/14/25 18:53 of Lip/Tongue/Throat Review of Systems Review of Systems Systems Reviewed: All systems reviewed, normal except as documented Past Medical History Past Medical History CARDIAC: Positive Cardiac Disorders, Hypercholesterolemia and Hypertension RESPIRATORY: Positive Chronic Obstructive Pulmonary Disease (COPD), Asthma, Pneumonia and Sleep Apnea GASTROINTESTINAL: Positive Gastrointestinal Disorders and Obesity REPRODUCTIVE: Positive Previous Pregnancies MUSCULOSKELETAL: Positive Musculoskeletal Disorders ENT: Positive Cataracts ENDOCRINE: Positive Endocrine Disorders and Diabetes Mellitus Type 2 OTHER HISTORY: Positive Hospitalization, Developmental Delay and Chicken Pox Family History FAMILY HISTORY: Positive Family Cardiac Disorders and Family Surgery Surgical History SURGICAL: Positive Abdominal Surgery and Tubal Ligation ED Exam Narrative Physical exam: GEN. APPEARANCE: The patient is alert awake oriented X-3 in no distress, lying down comfortably, does not look ill/toxic. Patient has good eye contact. Patient is cooperative. Complaining of right-sided pleuritic chast pain. VITALS: All vitals were reviewed and the pulse ox is 99% on room air which is normal according to my interpretation. HEENT: Normocephalic, atraumatic. Pupils are equal and reactive. Oral mucosa is moist. Patent Nares NECK: Supple, nontender, no thyromegaly, no meningismus, no JVD, no step offs CHEST: Symmetrical, atraumatic, and with equal expansion , Markedly tender right lower anterior costal area, but no deformity and no crepitus. CARDIOVASCULAR: Heart regular rhythm no murmur or gallop rub or extra beats. LUNGS: Clear to auscultation bilaterally with symmetrical chest rise. No laboring tachypnea or wheezing. No intercostal subcostal retraction. No rales and no rhonchi. ABDOMEN: Soft, flat, nontender to palpation, no guarding or rebound tenderness. There are no abnormal masses palpated. Active and normal bowel sounds. EXTREMITIES: Nontender. No edema. No cyanosis. Patient is able to move all 4 extremities well, with full ROM and good CSM. No calf tenderness. SKIN: Warm and dry, no jaundice or rashes noted. MUSCULOSKELETAL: No lubar or midline bony tenderness. There is no CVA tenderness. No paraspinal muscle spasm or tenderness. NEURO: Patient is REYES x 4, Cranial nerves II through XII grossly intact. There is no focal neurologic deficits noted. GCS is 15, PNS and M[employer] NOZZLEMAN appear grossly intact. PSYCHIATRIC: Patient is in normal mood and affect, cooperative, no SI or HI or hallucinations. Course Course Course Narrative: CXR is ordered for determining the etiology of shortness of breath. Quality Measures none Orders Category Date Time Status EKG (ED ONLY) *Do not use* NOW Care 03/14/25 19:50 Completed EKG (ED Only) Stat Exams 03/14/25 19:50 Draft US gall bladder Stat Exams 03/14/25 19:52 Taken XR chest 1V portable Stat Exams 03/14/25 19:50 Taken B-Type Natriuretic Peptide Stat Lab 03/14/25 19:58 Completed CBC Stat Lab 03/14/25 19:58 Completed Comprehensive Metabolic Panel Stat Lab 03/14/25 19:58 Completed D-Dimer Stat Lab 03/14/25 19:58 Completed Lactate (Lactic Acid) Stat Lab 03/14/25 19:58 Completed Lipase Stat Lab 03/14/25 19:58 Completed Procalcitonin Stat Lab 03/14/25 19:58 Completed Troponin I Stat Lab 03/14/25 19:58 Completed HYDROcodone*/APAP 5/325 [[place] 5/325] Med 03/14/25 20:25 Discontinued 1 tab PO X1 ONE Vital Signs Vital signs: Vital Signs Temperature 98.3 F 03/14/25 19:44 Pulse Rate 103 H 03/14/25 19:44 Respiratory Rate 20 03/14/25 19:44 Blood Pressure 122/80 03/14/25 19:44 Pulse Oximetry (%) 99 03/14/25 19:44 Oxygen Delivery Method Room Air 03/14/25 19:44 Abdominal Pain MDM MDM Narrative MDM Narrative:: Scribe Attestation: Alicia Sanchez, am scribing for and in the presence of Dr. Lawson. Provider Notation: Although this document has been carefully reviewed, there may still be some phonetic and other typographical errors.? These errors are purely grammatical due to imperfections in the software program and should not be construed in any way to? compromise the substance of the patient's medical care during this visit. 60 y/o female presents s/p recent laproscopic cholecystectomy in February 2025, now with sudden onset right lower anterior chest/RUQ abdominal pain awakening her at 4 AM. Pain is constant in nature throughout the day with pleuritic component. D-Dimer and cardiac work-up due to concern for PE. Please see PE findings. Laboratory markings including CBC and chemistry essentially unremarkable. Potassium slightly low at 3.2, advised to replace with PO Potassium. D-Dimer unremarkable. EKG without acute findings. Patient mary be treated with PO [place] with subjective results. Markedly tender right lower lateral chest wall. Suspect musculoskeletal etiology. Patient prescribed Naproxen and Flexiril. Patient data External records reviewed:: [facility] previous records (Reviewed prior ED records from 02/15/25. Patient seen for Skin irritation due to topical agent.) Clinical information provided by:: patient Social determinants that could affect healthcare access:: none Patient has the following chronic illnesses:: Hypercholesterolemia, Hypertension, Chronic Obstructive Pulmonary Disease (COPD), Asthma, Pneumonia, Sleep Apnea, Obesity, Cataracts, Diabetes Mellitus Type 2 How is presenting disease/condition affected by chronic disease/condition?: exacerbated by Evaluation data The following diagnostics were reviewed and interpreted by me:: lab results, radiology exam(s) and EKG tracing(s) (EKG at 19:51 shows sinus tachycardia, 102 bpm, no acute st segment changes, no ventricular ectopy, axis rightward, per my interpretation.) Lab and/or radiology exams considered but not ordered:: None Interpretation Summary: RADIOLOGY Chest X-Ray: Patient: SUSANA PAREKH. Record#: [id number] Birthdate: 1965 Age/Sex: 60 / F Location: [facility] Attending Dr: Ordering Physician: Mehdi Riojas PA-C Date of Service: 03/14/25 Procedure(s): XR chest 1V portable Accession Number(s): [id number] cc: Aidan Cary PA-C; Cyrus Laboy MD; Mehdi Riojas PA-C~ Examination: PA chest single view TECHNIQUE: Upright PA chest single view Date and time: March 14, 20252007 hours INDICATIONS: Worsening right upper abdominal pain today, history COPD hypertension diabetes FINDINGS: Normal heart size Lungs are clear The osseous structures are intact IMPRESSION: No active disease Dictated By: Cyrus Laboy MD Signed By: <Electronically signed by Cyrus Laboy MD in OV> 03/14/252121 Gall Bladder US: Patient: SUSANA PAREKH. Record#: [id number] Birthdate: 1965 Age/Sex: 60 / F Location: [facility] Attending Dr: Ordering Physician: Mehdi Riojas PA-C Date of Service: 03/14/25 Procedure(s): US gall bladder Accession Number(s): [id number] cc: Aidan Cary PA-C; Cyrus Laboy MD; Mehdi Riojas PA-C~ Examination: Abdomen sonogram, Limited Date and time of exam: March 14, 2025, 2046 hours INDICATIONS: Right upper abdomen pain today, status post cholecystectomy one month ago Technique: Real-time bernal scale transabdominal sonographic images of the upper abdomen obtained. Findings: Absent gallbladder Normal common bile duct 0.6 cm Pancreatic head 3.0 cm Liver 15.7 cm fatty infiltration Normal hepatopedal portal venous flow, portal vein measures 1.4 cm Patent IVC IMPRESSION: Absent gallbladder. Negative for common bile duct stones Dictated By: Cyrus Laboy MD Signed By: <Electronically signed by Cyrus Laboy MD in OV> 03/14/252133 Medications / Prescriptions Medications or Prescriptions considered but not ordered:: None Medication administrations:: Medication Administration History Discontinued Medications Hydrocodone Bitart/Acetaminophen (Hydrocodone/Apap 5/325 Tablet) 1 tab PO X1 ONE Stop: 03/14/25 20:26 Last Admin: 03/14/25 20:43 Dose: 1 tab Documented By: MF See above Consultations Consultation(s) initiated? (list below): No Diagnosis Differential diagnosis abdominal pain: abdominal pain, acute appendicitis, calculus of kidney, constipation, diverticulitis, gastroenteritis, pancreatitis, small bowel obstruction and other (Costochondritis, Pleurisy, Chest wall pain) Most likely diagnosis given after review of the tests above:: Chest wall pain Admission Indicated Admission indicated?: not indicated Explain why admission is indicated or not indicated:: Patient does not meet admission criteria. Admission Request Was there a request for admission?: No Disposition Plan Disposition Plan: Discharge Discharge Attestation Discharge Attestation: The patient and all family members were given an opportunity to ask questions and understood the discharge instructions. Discharge instructions specifically effects, indications for sooner follow up or return to the emergency department, and the expected course of current diagnosis. Patient condition: Stable Critical Care Time Critical Care Time Critical Care Time: No Discharge Plan Plan Patient Disposition: HOME (Self Care) Prescriptions/Referrals Prescriptions/Med Rec: New naproxen [Naprosyn] 500 mg tablet 250 mg PO BID 5 Days Qty: 5 0RF Rx Instructions: With food cyclobenzaprine 5 mg tablet 5 mg PO TID PRN (Reason: muscle spasm) Qty: 15 0RF oxycodone-acetaminophen 5-325 mg tablet 1 tab PO BID MDD 2 PRN (Reason: pain) Qty: 14 0RF No Action atorvastatin 20 mg tablet 20 mg PO QDAY budesonide 0.5 mg/2 mL suspension for nebulization 0.5 mg inhalation BID cetirizine 10 mg tablet 10 mg PO QDAY mirabegron [Myrbetriq] 50 mg tablet extended release 24 hr 50 mg PO QDAY Ozempic 1 mg/dose (4 mg/3 mL) pen injector 1 mg subcut QWEEK montelukast 10 mg tablet 10 mg PO QDAY theophylline 300 mg tablet extended release 12 hr 300 mg PO DAILY acetaminophen 500 mg tablet 500 mg PO Q6H PRN (Reason: pain) glipizide 5 mg tablet 5 mg PO QDAY gabapentin 100 mg capsule 100 mg PO Q12H potassium chloride 20 mEq tablet,ER particles/crystals 20 meq PO QDAY omeprazole 20 mg capsule,delayed release(DR/EC) 40 mg PO QDAY hydrochlorothiazide 25 mg tablet 25 mg PO QDAY losartan 100 mg tablet 100 mg PO QDAY aspirin 81 mg tablet,delayed release (DR/EC) 81 mg PO DAILY Patient Comments: TAKE 1 TABLET BY MOUTH EVERY DAY carvedilol [Coreg] 6.25 mg tablet 6.25 mg PO BID Rx Instructions: must administer with a meal/food umeclidinium-vilanterol [Anoro Ellipta] 62.5-25 mcg/actuation blister with device 1 inh inhalation QDAY albuterol sulfate 90 mcg/actuation HFA aerosol inhaler 2 inh INHALATION Q4H PRN (Reason: shortness of breath or wheezing) Lactobacillus acidophilus 1 billion cell capsule 1,000 mmu cells PO QDAY Qty: 30 0RF doxycycline hyclate 100 mg tablet 100 mg PO QDAY Qty: 6 0RF Rx Instructions: Take two (2) tablets today, and then one tablet each day until completed oxycodone-acetaminophen [Percocet] 5-325 mg tablet 1 tab PO Q6H MDD 6 tabs PRN (Reason: pain) Qty: 20 0RF cholecalciferol (vitamin D3) 250 mcg (10,000 unit) capsule 10,000 unit PO QWEEK Qty: 10 0RF Referrals: Aidan Cary PA-C [Primary Care Provider] - In 1 week Problem List Clinical Impression: Chest wall pain following surgery Patient/Caregiver Discharge Instructions Education Materials: ED Chest Pain, Noncardiac Additional Instructions: Ice compresses alternating with warm moist heat. Medication as directed. Follow-up with primary care doctor in 5 to 7 days return if worsening. Print Language: Japanese Stand Alone Forms: [employer] Info., Patient Portal Info Letter
[2025-03-14 22:21] VITALS: BP 121/81; PULSE 80; RESP 18; TEMP 36.9; O2SAT 97
--- NOTE | 2025-03-15 00:16 | PD.EDADDENDU ---
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 RX sent.
[2025-03-15 00:23] VITALS: RESP 18
== END 2025-03-15 00:23 | disposition home or self-care (01) ==
PROVIDERS: Physician Assistant; Emergency Provider Emergency Medicine; PCP Physician Assistant
DX: G89.18 Other acute postprocedural pain (principal); R07.89 Other chest pain; R10.11 Right upper quadrant pain; Z90.49 Acquired absence of other specified parts of digestive tract; I10 Essential (primary) hypertension
CPT/HCPCS: 36415; 71045; 76705; 80053; 83605; 83690; 83880; 84145; 84484; 85025; 85379; 93005; 99284; A9270

== ENCOUNTER 2025-08-18 19:48 | Observation (INO) | payer MEDICAID, SELFPAY ==
[2025-08-18 19:50] VITALS: BMI 31.3
[2025-08-18 20:07] VITALS: BP 116/74; PULSE 94; RESP 18; TEMP 37.2; O2SAT 97
--- NOTE | 2025-08-18 20:29 | XR_ITS ---
EXAMINATION: PA chest single view TECHNIQUE: Upright PA chest single view Date and time: August 18, 2025, 2055 hours INDICATIONS: Shortness of breath today. FINDINGS: Normal heart size Lungs are clear. Intact osseous structures IMPRESSION: No active disease
--- NOTE | 2025-08-18 20:29 | EKG_ITS ---
[facility] Test Date: 2025-08-18 Pat Name: SUSANA PAREKH Department: Room: - Gender: Female [employer]: : 1965 Requested By: Benja Powell Order Number: [id number] Reading MD: Benja Powell Measurements Intervals [place] Rate: 94 P: 28 MI: 127 QRS: 61 QRSD: 81 T: 72 QT: 330 QTc: 413 Interpretive Statements SINUS RHYTHM LOW QRS VOLTAGE IN PRECORDIAL LEADS [QRS DEFLECTION < 1.0 mV IN CHEST LEADS] POSSIBLE ANTERIOR MYOCARDIAL INFARCTION , OF INDETERMINATE AGE [30 ms Q WAVE IN V3/V4, OR R < 0.2 mV IN V4] ST ELEVATION, CONSIDER INFERIOR INJURY [MARKED ST ELEVATION W/O NORMALLY INFLECTED T-WAVE IN II/aVF] ACUTE [place] Compared to ECG 03/14/2025 19:51:24 ST (T wave) deviation now present Sinus tachycardia no longer present Myocardial infarct finding still present /store/S0/[id number]/ecg/[id number].pdf
--- NOTE | 2025-08-18 20:29 | XR_ITS ---
Examination: CT brain head without contrast. 2-D sagittal coronal reconstructions Date and time of exam: August 18, 2025, 2039 hours INDICATIONS: Dizziness onset today COMPARISON: February 21, 2024 CTDI: vol (mGy): 45.6 DLP: (mGycm): 928 Technique: Multiple CT axial sections of the brain have been obtained, 5 mm slice thickness. Contrast has not been administered. 2-D sagittal, coronal reconstructions have been obtained Low dose protocols were performed. One or more of the following dose reduction techniques were used; automated exposure control, adjustment of the mA and/or KV according to patient size, use of iterative reconstruction technique. Findings: No significant ventricular enlargement. Intra-axial or extra-axial hemorrhage density is not seen. No mass effect or midline shift Basal cisterns are not remarkable. Fourth ventricle is midline. Cranial vault intact. Impression: Negative for acute hemorrhage, mass effect or midline shift Advise clinical correlation and follow-up accordingly
--- NOTE | 2025-08-18 20:34 | PD.EDDIZZY ---
ED Dizzyness RME/HPI General Chief Complaint: General Adult/Misc Complain Stated Complaint: dizziness and low blood sugar Time Seen by Provider: 08/18/25 20:28 Arrival date/time: 08/18/25 19:48 RME / HPI RME / HPI Narrative: See [facility] for Dr. Khan's HPI Documentation. Related Data Home Medications ?Medication ?Instructions ?Recorded ?Confirmed gabapentin 100 mg capsule 100 mg PO Q12H 09/27/23 08/19/25 hydrochlorothiazide 25 mg tablet 25 mg PO QDAY 09/27/23 08/19/25 losartan 100 mg tablet 100 mg PO QDAY 09/27/23 08/19/25 acetaminophen 500 mg tablet 500 mg PO Q6H PRN pain 01/22/25 08/19/25 atorvastatin 20 mg tablet 20 mg PO QDAY 01/22/25 08/19/25 budesonide 0.5 mg/2 mL suspension 0.5 mg inhalation BID 01/22/25 08/19/25 for nebulization cetirizine 10 mg tablet 10 mg PO QDAY 01/22/25 08/19/25 mirabegron 50 mg tablet,extended 50 mg PO QDAY 01/22/25 08/19/25 release 24 hr (Myrbetriq) montelukast 10 mg tablet 10 mg PO QDAY 01/22/25 08/19/25 semaglutide 1 mg/dose (4 mg/3 mL) 1 mg subcut QWEEK 01/22/25 08/19/25 subcutaneous pen injector (Ozempic) theophylline 300 mg 300 mg PO DAILY 01/22/25 08/19/25 tablet,extended release,12 hr aspirin 81 mg tablet,delayed 81 mg PO DAILY 02/06/25 08/19/25 release carvedilol 6.25 mg tablet (Coreg) 6.25 mg PO BID 02/06/25 08/19/25 umeclidinium 62.5 mcg-vilanterol 1 inh inhalation QDAY 02/06/25 08/19/25 25 mcg/actuation powdr for inhalation (Anoro Ellipta) omeprazole 40 mg capsule,delayed 40 mg PO DAILY 08/19/25 08/19/25 release potassium chloride 20 mEq 20 meq PO DAILY 08/19/25 08/19/25 tablet,extended release Previous Rx's ?Medication ?Instructions ?Recorded cholecalciferol (vitamin D3) 250 10,000 unit PO QWEEK #10 caps 07/15/23 mcg (10,000 unit) capsule cyclobenzaprine 5 mg tablet 5 mg PO TID PRN muscle spasm #15 03/15/25 tabs metformin 1,000 mg tablet 1,000 mg PO BID #60 tabs 08/20/25 metformin 1,000 mg tablet 1,000 mg PO BID #60 tabs 08/20/25 Allergies Allergy/AdvReac Type Severity Reaction Status Date / Time bee venom protein (honey bee) Allergy Severe Hives Verified 08/18/25 19:53 Penicillins Allergy Severe Swelling Verified 08/18/25 19:53 of Lip/Tongue/Throat Review of Systems Review of Systems Systems Reviewed: All systems reviewed, normal except as documented Past Medical History Past Medical History CARDIAC: Positive Cardiac Disorders, Hypercholesterolemia and Hypertension RESPIRATORY: Positive Chronic Obstructive Pulmonary Disease (COPD), Asthma, Pneumonia and Sleep Apnea GASTROINTESTINAL: Positive Gastrointestinal Disorders and Obesity REPRODUCTIVE: Positive Previous Pregnancies MUSCULOSKELETAL: Positive Musculoskeletal Disorders ENT: Positive Cataracts ENDOCRINE: Positive Endocrine Disorders and Diabetes Mellitus Type 2 OTHER HISTORY: Positive Hospitalization, Developmental Delay and Chicken Pox Family History FAMILY HISTORY: Positive Family Cardiac Disorders and Family Surgery Surgical History SURGICAL: Positive Abdominal Surgery and Tubal Ligation ED Exam Narrative Physical exam: See [facility] for Dr. Khan's Physical Exam Documentation. Course Quality Measures none Orders Category Date Time Status Patient Condition Routine Admission 08/18/25 23:[address] in Observation Status Routine Admission 08/18/25 23:53 Active Bedside Blood Glucose NOW Care 08/18/25 20:18 Completed Bedside Blood Glucose Q2HR Care 08/18/25 23:52 Completed EKG (ED ONLY) *Do not use* NOW Care 08/18/25 20:29 Completed Glucose [Bedside Blood Glucose] NOW Care 08/18/25 21:14 Completed Glucose [Bedside Blood Glucose] NOW Care 08/18/25 22:18 Completed Miscellaneous Nursing Order NOW Care 08/18/25 23:52 Completed Notify provider NEEDED Care 08/18/25 23:[address] head/brain wo con Stat Exams 08/18/25 20:29 Completed EKG (ED Only) Stat Exams 08/18/25 20:29 Draft XR chest 1V portable Stat Exams 08/18/25 20:29 Completed Beta Hydroxybutyrate Stat Lab 08/18/25 20:48 Completed Bilirubin,Direct Stat Lab 08/18/25 20:48 Completed CBC AM DRAW Lab 08/19/25 04:17 Completed CBC AM DRAW Lab 08/20/25 05:21 Completed CBC Stat Lab 08/18/25 20:48 Completed CMP [Comprehensive Metabolic Panel] Stat Lab 08/18/25 20:48 Completed CRP [C-Reactive Protein] Stat Lab 08/18/25 20:48 Completed Comprehensive Metabolic Panel AM DRAW Lab 08/19/25 04:17 Completed Comprehensive Metabolic Panel AM DRAW Lab 08/20/25 05:21 Completed ESR [Sed Rate (ESR)] Stat Lab 08/18/25 20:48 Completed Hemoglobin A1C [Glycohemoglobin w (eAG)] Stat Lab 08/18/25 20:48 Completed Magnesium AM DRAW Lab 08/19/25 04:17 Completed Magnesium AM DRAW Lab 08/20/25 05:21 Completed Magnesium Stat Lab 08/18/25 20:48 Completed Partial Thromboplastin Time AM DRAW Lab 08/19/25 04:17 Completed Phosphorous AM DRAW Lab 08/19/25 04:17 Completed Phosphorous AM DRAW Lab 08/20/25 05:21 Completed Procalcitonin Stat Lab 08/18/25 20:48 Completed Prothrombin Time with INR AM DRAW Lab 08/19/25 04:17 Completed TSH [Thyroid Stimulating Hormone] Stat Lab 08/18/25 20:48 Completed Troponin I Stat Lab 08/18/25 20:48 Completed UA, C/S IF [Urinalysis, C/S if Indicated] Stat Lab 08/18/25 20:59 Completed Urine Culture Stat Lab 08/18/25 20:59 Completed Acetaminophen Tab [Tylenol Tab] Med 08/18/25 23:52 Discontinued 650 mg PO Q6H PRN Acetaminophen Tab [Tylenol Tab] Med 08/18/25 23:52 Discontinued 650 mg PO X1 ONE Dextrose 50% Syr [D50w Syringe Abboject] Med 08/18/25 23:52 Discontinued 25 ml IV Q15MIN PRN Dextrose 50% Syr [D50w Syringe Abboject] Med 08/18/25 23:52 Discontinued 50 ml IV Q15MIN PRN Enoxaparin [Lovenox] Med 08/19/25 09:00 Discontinued 40 mg SC QDAY Glucagon Inj Med 08/18/25 23:52 Discontinued 1 mg IM Q15MIN PRN Nitrofurantoin Macro [Macrobid] Med 08/18/25 21:38 Discontinued 100 mg PO X1 ONE Ondansetron Inj [Zofran Inj] Med 08/18/25 23:52 Discontinued 4 mg IVP Q6H PRN Ondansetron Inj [Zofran Inj] Med 08/18/25 23:52 Discontinued 4 mg IVP X1 ONE Code Status Routine Oth 08/18/25 23:52 Completed Oxygen Delivery PRN RT 08/18/25 23:52 Completed Vital Signs Vital signs: Vital Signs Temperature 98.9 F 08/18/25 20:07 Pulse Rate 94 08/18/25 20:07 Respiratory Rate 18 08/18/25 20:07 Blood Pressure 116/74 08/18/25 20:07 Pulse Oximetry (%) 97 08/18/25 20:07 Oxygen Delivery Method Room Air 08/18/25 20:07 Dizziness MDM Narrative MDM Narrative:: This section includes all my notes and documentations, including HPI, PE, and ED course. Benja Khan MD HPI: 60 y/o female with Type II DM, HTN here with several days of feeling lightheaded and low sugar levels. Has been taking oral diabetic medication(s) and Ozempic for years. No other complaints. ROS: All negative except as documented in HPI. Physical Exam: General:? Alert and oriented.? No acute distress.? Eyes:? Conjunctivae and lids clear.? EOMI.? PERRL. ENT:? No nasal congestion. Neck:? Supple.? Heart:? RRR. Lungs:? No respiratory distress.? Good air movement.? No rhonchi, wheezing, rales.? Abdomen:? Soft and nontender.? Normal bowel sounds.? No distension.? No rebound or guarding.? Back:? No tenderness.? Skin:? Warm and dry.? Neuro:? Alert and oriented X 3.? Cranial Nerves II-XII grossly intact.? No peripheral motor deficits. I reviewed all diagnostic test results: My interpretation of the EKG is: Sinus rhythm (94 bpm) with nonspecific ST-T changes and no change with 03/19/2025 EKG. My interpretation of the chest x-ray is: NAD. My review of the Head/Brain CT report is: No acute findings. Blood tests remarkable for Glu 70. UA showed positive nitrite, positive leukocyte esterase, 9 WBC, and 1+ bacteria. At this point, diagnoses include: Acute Hyperglycemia UTI Treatment here included: Food and juice (no improvement despite multiple trials) Macrobid 100 mg I discussed the case with our hospitalist. About the presentation and exam and diagnostics and treatments here. And need of further care in the hospital. Will accept the patient. Benja Khan MD Patient data External records reviewed:: [facility] previous records (Reviewed prior ED records from 03/15/25. Patient was seen for Chest wall pain following surgery.) Clinical information provided by:: patient Social determinants that could affect healthcare access:: none Patient has the following chronic illnesses:: Hypercholesterolemia, Hypertension, Chronic Obstructive Pulmonary Disease (COPD), Asthma, Sleep Apnea, Obesity, Cataracts, Diabetes Mellitus Type 2, Developmental Delay How is presenting disease/condition affected by chronic disease/condition?: exacerbated by Evaluation data The following diagnostics were reviewed and interpreted by me:: lab results, radiology exam(s) and EKG tracing(s) (My interpretation of the EKG is: Sinus rhythm (94 bpm) with nonspecific ST-T changes and no change with 03/19/2025 EKG. Benja Khan MD) Lab and/or radiology exams considered but not ordered:: None Interpretation Summary: I reviewed all diagnostic test results: My interpretation of the EKG is: Sinus rhythm (94 bpm) with nonspecific ST-T changes and no change with 03/19/2025 EKG. My interpretation of the chest x-ray is: NAD. My review of the Head/Brain CT report is: No acute findings. Blood tests remarkable for Glu 70. UA showed positive nitrite, positive leukocyte esterase, 9 WBC, and 1+ bacteria. Medications / Prescriptions Medications or Prescriptions considered but not ordered:: None Medication administrations:: Medication Administration History Discontinued Medications Acetaminophen (Acetaminophen 325 Mg Tablet) 650 mg PO Q6H PRN PRN Reason: Fever >101.5 or pain 1-3 Stop: 09/17/25 23:51 Acetaminophen (Acetaminophen 325 Mg Tablet) 650 mg PO X1 ONE Stop: 08/18/25 23:53 Last Admin: 08/19/25 01:01 Dose: 650 mg Documented By: LORIN Albuterol/Ipratropium (Albuterol/Ipratropium (Duoneb) Rt Cindi 3 Ml Nebu) 3 ml INH Q6H PRN PRN Reason: SHORTNESS OF BREATH OR WHEEZE Stop: 09/18/25 00:11 Carvedilol (Carvedilol 12.5 Mg Tablet) 12.5 mg PO BIDWM [facility] Stop: 09/18/25 07:59 Carvedilol (Carvedilol 12.5 Mg Tablet) 12.5 mg PO BIDWM [facility] Stop: 09/18/25 07:59 Carvedilol (Carvedilol 12.5 Mg Tablet) 6.25 mg PO BIDWM [facility] Stop: 09/18/25 07:59 Last Admin: 08/20/25 08:30 Dose: 6.25 mg Documented By: Admin: 08/19/25 18:02 Dose: 6.25 mg Documented By: Admin: 08/19/25 08:09 Dose: 6.25 mg Documented By: Cyclobenzaprine HCl (Cyclobenzaprine 5 Mg Tablet) 5 mg PO TID PRN PRN Reason: MUSCLE SPASMS Stop: 09/18/25 00:33 Dextrose (Dextrose 50%-Water Inj 50 Ml Syringe) 25 ml IV Q15MIN PRN PRN Reason: BG 50-70 responsive npo pt Stop: 09/17/25 23:51 Dextrose (Dextrose 50%-Water Inj 50 Ml Syringe) 50 ml IV Q15MIN PRN PRN Reason: BG <50 OR BG <70 & pt unresponsive Stop: 09/17/25 23:51 Enoxaparin Sodium (Enoxaparin Sod Inj 40 Mg/0.4 Ml Syringe) 40 mg SC QDAY [facility] Stop: 09/02/25 08:59 Last Admin: 08/20/25 08:00 Dose: 40 mg Documented By: Admin: 08/19/25 08:09 Dose: 40 mg Documented By: Gabapentin (Gabapentin 100 Mg Capsule) 100 mg PO BID [facility] Stop: 09/18/25 08:59 Last Admin: 08/20/25 08:00 Dose: 100 mg Documented By: Admin: 08/19/25 20:37 Dose: 100 mg Documented By: Admin: 08/19/25 08:09 Dose: 100 mg Documented By: Glucagon (Glucagon Inj 1 Mg Vial) 1 mg IM Q15MIN PRN PRN Reason: BG <70, and no IV access Insulin Human Lispro (Insulin Lispro (Admelog) 1 Unit/0.01 Ml Unit) 0 unit SC AC [facility]; Protocol Stop: 09/18/25 07:29 Insulin Human Lispro (Insulin Lispro (Admelog) 1 Unit/0.01 Ml Unit) 0 unit SC Q6H ERIN; Protocol Stop: 09/18/25 00:00 Last Admin: 08/19/25 06:16 Dose: Not Given Documented By: CHARLA Non-Admin Reason: Per Protocol Admin: 08/19/25 00:59 Dose: Not Given Documented By: LORIN Non-Admin Reason: Per Protocol Insulin Human Lispro (Insulin Lispro (Admelog) 1 Unit/0.01 Ml Unit) 0 unit SC ACHS [facility]; Protocol Stop: 09/18/25 11:29 Last Admin: 08/20/25 14:19 Dose: Not Given Documented By: MYRA Non-Admin Reason: Per Protocol Admin: 08/20/25 07:56 Dose: Not Given Documented By: MYRA Non-Admin Reason: Per Protocol Admin: 08/19/25 20:37 Dose: Not Given Documented By: CHARLA Non-Irais Reason: Per Protocol Admin: 08/19/25 18:03 Dose: Not Given Documented By: Non-Admin Reason: Per Protocol Admin: 08/19/25 11:39 Dose: Not Given Documented By: Non-Admin Reason: Per Protocol Nitrofurantoin Macrocrystals (Nitrofurantoin Macro 100 Mg Capsule) 100 mg PO X1 ONE Stop: 08/18/25 21:39 Last Admin: 08/18/25 21:56 Dose: 100 mg Documented By: BD Ondansetron HCl (Ondansetron Inj 2 Mg/Ml Inj 2 Ml) 4 mg IVP Q6H PRN; Protocol PRN Reason: NAUSEA OR VOMITING Stop: 09/17/25 23:51 Ondansetron HCl (Ondansetron Inj 2 Mg/Ml Inj 2 Ml) 4 mg IVP X1 ONE; Protocol Stop: 08/18/25 23:53 Last Admin: 08/19/25 01:01 Dose: Not Given Documented By: SM Non-Admin Reason: Patient Refused Sennosides (Senna/Docusate Sod 1 Tab Tablet) 1 tab PO QDAY PRN; Protocol PRN Reason: CONSTIPATION Stop: 09/18/25 08:59 Treatment here FROM ME included: Food and juice (no improvement despite multiple trials) Macrobid 100 mg Consultations Consultation(s) initiated? (list below): Yes Consultation #1 (Physician, Specialty, Details): I discussed the case with our hospitalist. About the presentation and exam and diagnostics and treatments here. And need of further care in the hospital. Will accept the patient. Time: 00:00 Diagnosis Dizziness Differential Diagnosis: adverse reaction to drug, orthostatic hypotension, vertebral basilar insufficiency and other (UTI, Pneumonia, Dehydration, Sepsis, Hypoglycemia, Electrolyte Abnormalities) Most likely diagnosis given after review of the tests above:: Hypoglycemia UTI Admission Indicated Admission indicated?: indicated Explain why admission is indicated or not indicated:: Persistent Hypoglycemia Admission Request Was there a request for admission?: Yes Admission Attestation Admission request attestation: Discussed case with Hospitalist service regarding admission. Discussed patients ED course, exam findings, labs, and radiology results. Agreed to accept the patient for admission. Disposition Plan Disposition Plan: Admit Discharge Plan Plan Patient Disposition: Admit Acute Care w/in Hospital Problem List Clinical Impression: UTI (urinary tract infection), Hypoglycemia
[2025-08-18 21:05] LABS: Sed Rate (ESR) 7 mm/hr (0-30)
[2025-08-18 21:10] LABS: Collection Type, Urine Clean Catch
[2025-08-18 21:22] LABS: Basophils # (Auto) 0.0 Thou/mm3 (0.0-0.2); Basophils % (Auto) 0 % (0-2.5); Eosinophils # (Auto) 0.2 Thou/mm3 (0.0-0.5); Eosinophils % (Auto) 2 % (0-10); Hematocrit 45.3 % (36.0-46.0); Hemoglobin 14.3 g/dL (12.0-16.0); Immature Granulocytes Auto 0.02 Thou/mm3 (0.00-0.00); Lymphocytes # (Auto) 2.1 Thou/mm3 (1.0-4.8); Lymphocytes % (Auto) 25 % (10-50); Mean Corpuscular HGB Conc 31.6 g/dl (31.0-37.0); Mean Corpuscular Hemoglobin 25.1 pg (25.0-35.0); Mean Corpuscular Volume 80 fL (80-100); Monocytes # (Auto) 0.7 Thou/mm3 (0.0-0.8); Monocytes % (Auto) 8 % (0-12); Neutrophils # (Auto) 5.5 Thou/mm3 (1.8-7.7); Neutrophils % (Auto) 65 % (37-80); Nucleated Red Blood Cell # 0.00 Thou/mm3 (0.00-0.00); Nucleated Red Blood Cell % 0 /100 WBC (0); Platelet Count 210 Thou/mm3 (140-440); RDW Standard Deviation 40.8 fL (36.4-46.3); Red Blood Count 5.70 Miln/mm3 (4.00-5.20); White Blood Count 8.5 Thou/mm3 (3.6-11.0)
[2025-08-18 21:29] LABS: Bacteria,Urine 1+; Bilirubin,Urine Negative (Negative); Blood,Urine Negative (Negative); Clarity,Urine Clear (Clear/Hazy); Color,Urine Lt-Yellow (Lt Yel-Yel); Glucose, Urine 4+ (Negative); Ketones,Urine Negative (Negative); Leukocyte Esterase,Urine Positive (Negative); Nitrite,Urine Positive (Negative); PH,Urine 6.5 (5.0-7.0); Protein,Urine Negative (Neg - Trace); RBC,Urine 1 /hpf (0-3); Specific Gravity,Urine 1.025 (1.001-1.035); Squamous Epithelial Cell,Urine 2 /hpf (0-5); Urobilinogen,Urine Negative mg/dL (0.0-1.0); WBC,Urine 9 /hpf (0-5)
[2025-08-18 21:30] LABS: Culture Indicated,Urine Yes
[2025-08-18 21:32] LABS: Alanine Aminotransferase 23 U/L (10-49); Albumin, Serum 4.6 gm/dL (3.4-4.8); Albumin/Globulin Ratio 2.3 (1.2-2.2); Alkaline Phosphatase 90 U/L (46-116); Anion Gap 7 (7-16); Aspartate Amino Transferase 22 U/L (0-34); BUN/Creatinine Ratio 14 Ratio (12-20); Beta Hydroxybutyrate 0.2 mmol/L (<0.6); Bilirubin,Direct 0.1 mg/dL (0.0-0.3); Bilirubin,Total 0.4 mg/dL (0.3-1.2); Blood Urea Nitrogen 13 mg/dL (9-23); Calcium 9.5 mg/dL (8.3-10.6); Calcium (Corrected) 9.5 mg/dL (8.5-10.1); Carbon Dioxide 29.4 mMol/L (20.0-31.0); Chloride 106 mMol/L (98-107); Creatinine (Component) 0.9 mg/dL (0.6-1.3); Estimated Creatinine Clearance 72.4 mL/min (>60); Globulin 2.0 gm/dL (2.3-3.5); Glucose 70 mg/dL (74-106); Magnesium 2.2 mg/dL (1.6-2.6); Osmolality,Calculated 281 (275-295); Potassium 3.9 mMol/L (3.4-5.1); Procalcitonin < 0.04 ng/ml (0.0-0.49); Sodium 142 mMol/L (136-145); Thyroid Stimulating Hormone 0.89 uIU/mL (0.55-4.78); Total Protein 6.6 gm/dL (5.7-8.2); Troponin I < 0.002 ng/mL (0.0-0.045); eGFR > 60 See Note
[2025-08-18] MEDS: NITROFURANTOIN MACRO 100 MG CAPSULE PO (21:56)
[2025-08-18 22:30] LABS: Glucose Estimated Average 103 mg/dL (80-131); Hemoglobin A1C 5.2 % Hgb (4.8-6.0)
[2025-08-18 22:32] LABS: C-Reactive Protein < 0.5 mg/dL (0.0-0.9)
[2025-08-19] VITALS (13 sets, daily range): BP systolic 114–138; BP diastolic 77–93; PULSE 74–103; RESP 17–98; TEMP 36.2–37.1; O2SAT 97–99; BMI 31.4
--- NOTE | 2025-08-19 00:02 | ESHP_ITS ---
<Statement entered by Jeronimo Ordaz MD - 08/19/25 06:48> A 58-year-old female with significant past medical history of diabetes mellitus, asthma and hypertension presented to the hospital with chief complaints of lower blood sugars noted on blood checks, headache and dizziness since yesterday. Reported that she continued to take oral medication despite noted to have low blood glucose levels. Denies nausea, vomitings, any other symptoms or signs of infections. Unsure of the name of the medications that she is taking but reported that she is taking Ozempic. Vitals are stable at the time of admission. Physical examination remains unremarkable. Labs at the time of admission significant for blood glucose 70. He urinalysis showed 4+ glucosuria, 9 WBC, 1+ bacteria. Head CT is negative for acute hemorrhage, mass effect or midline shift. EKG showed normal sinus rhythm with ST elevation in lead III. Patient is admitted in the hospital in view of hyperglycemia likely secondary to glipizide and Jardiance usage. Last dose of glipizide is on the afternoon on the day of admission. Will continue to check blood sugars. I have personally seen and examined the patient, agree with residents assessment and plan Patient plan of care was discussed with the attending physician, Dr. Jonatan Ordaz, PGY2 Documentation for date of: 08/18/25 HPI History of Present Illness Chief complaint: Headache and dizziness History of present illness: This patient is a 58-year-old female with a history of muz-cxyxhvv-mifcvmvkr type 2 diabetes mellitus, asthma, and hypertension who presented to [facility] ED on 08/18 with headache and dizziness. Patient was admitted under observation for management of hypoglycemia. Patient symptoms started earlier today and nothing really seems to have helped. When she came to the ED, the patient was told that she had low blood glucose. The patient has had previous episodes of low blood glucose in the past, but usually they are present more acutely with worsening shortness of breath and exacerbation of her asthma. This episode does not seem quite like the other episodes, and in fact it does seem a bit more mild, but the patient was concerned as her headache and dizziness were not going away. The patient claimed that she was consuming a lot of water, so she does not believe that this is secondary to dehydration. The most likely culprit is her glipizide for which she takes daily and has been taking it for several years for management of her diabetes. The only other medication that the patient takes for her diabetes is Ozempic, however overall the patient is a rather poor historian when it comes to her medical conditions and what medications she takes. The patient believes that she is almost at the point of kidney failure, has heart failure, and has a really enlarged heart. In regards to medications, the patient knows that she takes a lot, but does not know any of them besides her Ozempic and glipizide. The last time she took her glipizide was around noontime and the day that she decided to go to the ED. The patient has continued her glipizide even though she has episodes of hypoglycemia as she has never told her PCP about these episodes. The patient denies any vision changes, fever, chills, shortness of breath, chest pain, abdominal pain, dysuria, or decreased urinary frequency. ED course: Initial vitals unremarkable. Initial labs significant for blood glucose 70. Hemoglobin A1c 5.3%. Urinalysis significant for 4+ glucose, 9 WBC, leukocyte esterase positive, and 1+ bacteria. CT head negative for acute findings. Patient was given some juices and snacks, which increased her bedside blood glucose to 103, later decreasing to 79, and then further increasing to 108. No other interventions noted other than one-time dose of nitrofurantoin. ED decided to admit the patient as they were very concerned about her difficult to control hypoglycemia. Past Surgical History: Cholecystectomy, hernia repair x 2, appendectomy, tubal ligation Current Medication(s): Pending med rec Allergies (w/ Reactions): Bee sting (hives), penicillin (rash) Family History: Noncontributory Alcohol Intake: Patient denies Tobacco/Vape Use: Patient denies Other Drug Use: Patient denies Recent sick contact: Patient denies Review of Systems Review of Systems Systems Reviewed: All systems reviewed, normal except as documented Exam Vital Signs Temp Pulse Resp BP Pulse Ox O2 Del Method 98.9 F 94 18 116/74 97 Room Air 08/18/25 20:07 08/18/25 20:07 08/18/25 20:07 08/18/25 20:07 08/18/25 20:07 08/18/25 20:07 Narrative Exam Physical Exam: General: Alert, no acute distress. Skin: Warm, dry, intact. Head: Normocephalic, atraumatic. Eye: Normal conjunctiva, PERRL. Throat: Oral mucosa moist. No obvious lesions in oropharynx. Cardiovascular: Regular rate and rhythm, no murmur, +S1/S2. Respiratory: Lungs are clear to auscultation, respirations unlabored, no crackles, no wheezing. Gastrointestinal: Soft, nontender, non-distended. No guarding or rebound tenderness. Extremities: No edema, no cyanosis, no clubbing. 2+ radial pulse bilaterally, 2+ pedal pulse bilaterally. Neuro: No focal deficits observed. Conversant, moving all extremities. No overt cerebellar signs/incoordination. Psychiatric: Cooperative, appropriate affect. Results: Labs 08/19/25 04:17 08/19/25 04:17 Labs: Short CBC 08/18/25 Range/Units 20:48 WBC 8.5 (3.6-11.0) Thou/mm3 Hgb 14.3 (12.0-16.0) g/dL Hct 45.3 (36.0-46.0) % Plt Count 210 (140-440) Thou/mm3 BMP 08/18/25 20:48 Sodium 142 Potassium 3.9 Chloride 106 Carbon Dioxide 29.4 BUN 13 Creatinine 0.9 Glucose 70 L Calcium 9.5 Cardiac Enzymes 08/18/25 Range/Units 20:48 Troponin I < 0.002 (0.0-0.045) ng/mL Liver Function 08/18/25 Range/Units 20:48 Total Bilirubin 0.4 (0.3-1.2) mg/dL Direct Bilirubin 0.1 (0.0-0.3) mg/dL AST 22 (0-34) U/L ALT 23 (10-49) U/L Alkaline Phosphatase 90 (46-116) U/L Albumin 4.6 (3.4-4.8) gm/dL Urine 08/18/25 Range/Units 20:59 Urine Color Lt-Yellow (Lt Yel-Yel) Urine Clarity Clear (Clear/Hazy) Urine pH 6.5 (5.0-7.0) Ur Specific [place] 1.025 (1.001-1.035) Urine Protein Negative (Neg - Trace) Urine Glucose (UA) 4+ A (Negative) Quality Measures Quality Measures VTE prophylaxis Medications Home Medications and Allergies Home Medications ?Medication ?Instructions ?Recorded ?Confirmed ?Type gabapentin 100 mg capsule 100 mg PO Q12H 09/27/2308/06 History hydrochlorothiazide 25 mg tablet 25 mg PO QDAY 4 08/19/25 History losartan 100 mg tablet 100 mg PO QDAY 09/27/2308/06 History acetaminophen 500 mg tablet 500 mg PO Q6H PRN pain 08/19/25 History atorvastatin 20 mg tablet 20 mg PO QDAY 01/22/2508/19 History budesonide 0.5 mg/2 mL suspension 0.5 mg inhalation BI D 01/22/25 08/19/25 History for nebulization cetirizine 10 mg tablet 10 mg PO QDAY 01/22/2508/19 History mirabegron 50 mg tablet,extended 50 mg PO QDAY 5 08/19/25 History release 24 hr (Myrbetriq) montelukast 10 mg tablet 10 mg PO QDAY 01/22/2508/19 History semaglutide 1 mg/dose (4 mg/3 mL) 1 mg subcut QWEEK 08/19/25 History subcutaneous pen injector (Ozempic) theophylline 300 mg 300 mg PO DAILY 01/22/25 History tablet,extended release,12 hr aspirin 81 mg tablet,delayed 81 mg PO DAILY 02/06/25 1 10/20/24 History release carvedilol 6.25 mg tablet (Coreg) 6.25 mg PO BID 02/0608/19/25 History umeclidinium 62.5 mcg-vilanterol 1 inh inhalation QDAY 02/06/25 08/19/25 History 25 mcg/actuation powdr for inhalation (Anoro Ellipta) empagliflozin 5 mg-metformin 500 1 tab PO BID 08/19/25 08/19/25 History mg tablet (Synjardy) omeprazole 40 mg capsule,delayed 40 mg PO DAILY 08/19/25 History release potassium chloride 20 mEq 20 meq PO DAILY 08/19/25 History tablet,extended release Allergies Allergy/AdvReac Type Severity Reaction Status Date / Time bee venom protein (honey bee) Allergy Severe Hives Verified 08/18/25 19:53 Penicillins Allergy Severe Swelling Verified 08/18/25 19:53 of Lip/Tongue/Throat Visit Medications Acetaminophen (Acetaminophen 325 Mg Tablet) 650 mg PO Q6H PRN PRN Reason: Fever >101.5 or pain 1-3 Stop: 09/17/25 23:51 Acetaminophen (Acetaminophen 325 Mg Tablet) 650 mg PO X1 ONE Stop: 08/18/25 23:53 Dextrose (Dextrose 50%-Water Inj 50 Ml Syringe) 25 ml IV Q15MIN PRN PRN Reason: BG 50-70 responsive npo pt Stop: 09/17/25 23:51 Dextrose (Dextrose 50%-Water Inj 50 Ml Syringe) 50 ml IV Q15MIN PRN PRN Reason: BG <50 OR BG <70 & pt unresponsive Stop: 09/17/25 23:51 Enoxaparin Sodium (Enoxaparin Sod Inj 40 Mg/0.4 Ml Syringe) 40 mg SC QDAY ERIN Stop: 09/02/25 08:59 Glucagon (Glucagon Inj 1 Mg Vial) 1 mg IM Q15MIN PRN PRN Reason: BG <70, and no IV access Ondansetron HCl (Ondansetron Inj 2 Mg/Ml Inj 2 Ml) 4 mg IVP Q6H PRN; Protocol PRN Reason: NAUSEA OR VOMITING Stop: 09/17/25 23:51 Discontinued Medications Insulin Human Lispro (Insulin Lispro (Admelog) 1 Unit/0.01 Ml Unit) 0 unit SC AC ERIN; Protocol Stop: 09/18/25 07:29 Nitrofurantoin Macrocrystals (Nitrofurantoin Macro 100 Mg Capsule) 100 mg PO X1 ONE Stop: 08/18/25 21:39 Last Admin: 08/18/25 21:56 Dose: 100 mg Ondansetron HCl (Ondansetron Inj 2 Mg/Ml Inj 2 Ml) 4 mg IVP X1 ONE; Protocol Stop: 08/18/25 23:53 Assessment & Plan Plan This patient is a 58-year-old female with a history of fqy-uupdgie-zlcbrokkm type 2 diabetes mellitus, asthma, and hypertension who presented to [facility] ED on 08/18 with headache and dizziness. Patient was admitted under observation for management of hypoglycemia. #Glipizide induced recurrent hypoglycemia #Headache and dizziness #Gzt-hrxlvxt-tumivtkdz type 2 diabetes mellitus Patient presented with headache and dizziness and was found to have low blood glucose in ED. ED attempted to correct this by giving the patient juice and snacks, which increased the blood glucose to within normal limits via bedside glucose test, however ED was concerned that the patient required additional care as she had a slight dip in her glucose. Likely cause of this is the patient's glipizide which she has been taking for several years and the patient has known that she has episodes of hypoglycemia in the past, although they are usually accompanied by shortness of breath rather than headache and dizziness. Diagnostic: Blood glucose initially 70 in ED Bedside blood glucose on admission was 108 Hemoglobin A1c 5.2% CT head 08/18 negative for acute findings Treatment: Sliding scale insulin Regular diet given hemoglobin A1c within normal limits Bedside glucose checks every 2 hours Tylenol and Zofran as needed for headache and dizziness respectively Referral to registered dietitian #Glucosuria #Asymptomatic bacteriuria Although the patient does not endorse a history of taking any other medication besides Ozempic and glipizide, outside pharmacy the prescription data shows that the patient was recently prescribed empagliflozin. Patient denies any dysuria, urinary retention, or urinary frequency. Diagnostic: Urinalysis in ED showed 4+ urine glucose, 9 urine WBC, positive leukocyte esterase, and 1+ urine bacteria Treatment: Per IDSA guidelines, it is not recommended to treat asymptomatic bacteriuria in non females Patient will follow-up outpatient #Hypertension Patient endorses a history of hypertension. Does not know what medication she takes. Treatment: Patient seems to be taking carvedilol 12.5 mg twice daily per outside pharmacy prescription data Started carvedilol 12.5 mg twice daily Pending med rec #Asthma Per patient. Patient states that if she has a hypoglycemia episode, her asthma will get worse. Treatment: DuoNebs every 6 hours as needed DVT Prophylaxis: Lovenox GI Prophylaxis: N/A Bowel: Sennokot PRN Diet: Carbohydrate consistent, cardiac Lopez: N/A Lines: PIV Antibiotics: N/A Code Status: FULL Reason for Hospitalization: Hypoglycemia Other Barriers to Discharge: Blood glucose control Patient plan of care was discussed with the senior resident Dr. Ordaz (PGY-2) and attending physician Dr. Jonatan Wong, PGY1 Attending Provider Attestation/Addendum After examination of the patient and review of the clinical data I feel that this patient needs admission to the hospital for further treatment/evaluation. Plan of care discussed with patient and is in agreement. I Suri Cheung MD, attest that I was physically present for green portions of evaluation, and examined patient, labs and imagings and plan of care were discussed with IM residents team, and I agree with the findings and plans documented above.
[2025-08-19] MEDS: ACETAMINOPHEN 325 MG TABLET 650 MG PO (01:01)
[2025-08-19 05:37] LABS: Basophils # (Auto) 0.0 Thou/mm3 (0.0-0.2); Basophils % (Auto) 0 % (0-2.5); Eosinophils # (Auto) 0.2 Thou/mm3 (0.0-0.5); Eosinophils % (Auto) 2 % (0-10); Hematocrit 42.1 % (36.0-46.0); Hemoglobin 13.3 g/dL (12.0-16.0); Immature Granulocytes Auto 0.03 Thou/mm3 (0.00-0.00); Lymphocytes # (Auto) 2.0 Thou/mm3 (1.0-4.8); Lymphocytes % (Auto) 25 % (10-50); Mean Corpuscular HGB Conc 31.6 g/dl (31.0-37.0); Mean Corpuscular Hemoglobin 25.0 pg (25.0-35.0); Mean Corpuscular Volume 79 fL (80-100); Monocytes # (Auto) 0.7 Thou/mm3 (0.0-0.8); Monocytes % (Auto) 8 % (0-12); Neutrophils # (Auto) 5.3 Thou/mm3 (1.8-7.7); Neutrophils % (Auto) 64 % (37-80); Nucleated Red Blood Cell # 0.00 Thou/mm3 (0.00-0.00); Nucleated Red Blood Cell % 0 /100 WBC (0); Platelet Count 197 Thou/mm3 (140-440); RDW Standard Deviation 39.7 fL (36.4-46.3); Red Blood Count 5.32 Miln/mm3 (4.00-5.20); White Blood Count 8.3 Thou/mm3 (3.6-11.0)
[2025-08-19 05:45] LABS: INR 1.0 (0.9-1.3); Partial Thromboplastin Time 26.8 Seconds (22.0-36.0); Prothrombin Time 10.3 Seconds (9.0-12.2)
[2025-08-19 06:03] LABS: Alanine Aminotransferase 23 U/L (10-49); Albumin, Serum 4.1 gm/dL (3.4-4.8); Albumin/Globulin Ratio 2.2 (1.2-2.2); Alkaline Phosphatase 95 U/L (46-116); Anion Gap 11 (7-16); Aspartate Amino Transferase 23 U/L (0-34); BUN/Creatinine Ratio 16 Ratio (12-20); Bilirubin,Total 0.4 mg/dL (0.3-1.2); Blood Urea Nitrogen 13 mg/dL (9-23); Calcium 9.0 mg/dL (8.3-10.6); Calcium (Corrected) 9.0 mg/dL (8.5-10.1); Carbon Dioxide 26.8 mMol/L (20.0-31.0); Chloride 103 mMol/L (98-107); Creatinine (Component) 0.8 mg/dL (0.6-1.3); Estimated Creatinine Clearance 81.5 mL/min (>60); Globulin 1.9 gm/dL (2.3-3.5); Glucose 101 mg/dL (74-106); Magnesium 2.1 mg/dL (1.6-2.6); Osmolality,Calculated 281 (275-295); Phosphorous 2.5 mg/dL (2.4-5.1); Potassium 3.7 mMol/L (3.4-5.1); Sodium 141 mMol/L (136-145); Total Protein 6.0 gm/dL (5.7-8.2); eGFR > 60 See Note
[2025-08-19] MEDS: GABAPENTIN 100 MG CAPSULE PO ×2 (08:09→20:37)
[2025-08-19] MEDS: ENOXAPARIN SOD INJ 40 MG/0.4 ML SYRINGE SC (08:09)
--- NOTE | 2025-08-19 11:48 | PC.SS ---
Patient is a 60 year old female presenting to the hospital for hypoglycemia. MOTOR WINDER met with patient at bedside. MOTOR WINDER introduced self, role and reason for visit. Patient confirmed demographic information and stated she lives at home with . Patient stated that her is her alternate decision maker and his name is Mike Mak [phone]. Patient stated that she has 2l of oxygen at home, nebulizer, sleep apnea machine, walker with cushion, and wheelchair. Patient stated that she is disabled, PCP is Dr. Corcoran her next appointment is and . Pharmacy of choice is [facility] on [address]. Patient stated that once medically clear she wants to return home and patients will provide transportation. ? Decision maker: Mike Mak PCP: Dr. Corcoran D/c: home
--- NOTE | 2025-08-19 12:13 | ESPR_ITS ---
Documentation for date of: 08/19/25 Subjective Subjective Interval history: Mrs. Mak is a 58F with history of DM, asthma, and hypertension presented for hypoglycemia and dizziness. She's taking ozempic, glipizide, and Synjardy at home. A1C 5.2. No recent medicaitons change. She's admitted for hypoglycemia management. 08/19/25: NAOE. Patient BG continues to be stable overnight. Patient still complains of dizziness, worse with exertion. Orthostatic vital signs obtained. Will continue to monitor patient's BG, likely DC tmr. Exam Vital Signs Temp Pulse Resp BP Pulse Ox O2 Del Method 97.6 F 93 20 128/77 97 Room Air 08/19/25 08:00 08/19/25 08:09 08/19/25 08:00 08/19/25 08:09 08/19/25 08:00 08/19/25 08:00 Narrative Exam General: Awake and in no acute distress. Conversational. HEENT: Normocephalic, atraumatic, mucous membranes moist. Heart: Regular rate and rhythm Lungs: Clear to auscultation with no wheezing or crackles. Abdomen: Soft, nondistended, nontender. No guarding or rebound tenderness. Neurologic: Alert and oriented x3, no gross neurological deficit, and patient able to move all 4 extremities. Extremities:No pitting edema. Skin: Skin clean, dry, and intact. No rash. No ecchymoses. Objective Labs 08/19/25 04:17 08/19/25 04:17 Labs: Laboratory Results - last 24 hr 08/18/25 08/18/25 08/19/25 20:48 20:59 04:17 WBC 8.5 8.3 RBC 5.70 H 5.32 H Hgb 14.3 13.3 Hct 45.3 42.1 MCV 80 79 L MCH 25.1 25.0 MCHC 31.6 31.6 RDW Std Deviation 40.8 39.7 Plt Count 210 197 Neut % (Auto) 65 64 Lymph % (Auto) 25 25 [place] % (Auto) 8 8 Eos % (Auto) 2 2 Baso % (Auto) 0 0 Neut # (Auto) 5.5 5.3 Lymph # (Auto) 2.1 2.0 [place] # (Auto) 0.7 0.7 Eos # (Auto) 0.2 0.2 Baso # (Auto) 0.0 0.0 Immature Gran # (Auto) 0.02 H 0.03 H Absolute Nucleated RBC 0.00 0.00 Immature Gran % 0 0 Nucleated RBC % 0 0 ESR 7 PT 10.3 INR 1.0 APTT 26.8 Sodium 142 141 Potassium 3.9 3.7 Chloride 106 103 Carbon Dioxide 29.4 26.8 Anion Gap 7 11 BUN 13 13 Creatinine 0.9 0.8 Estim Creat Clear Calc 72.4 81.5 eGFR > 60 > 60 BUN/Creatinine Ratio 14 16 Glucose [address] Glu mg/dL 103 Hemoglobin A1c 5.2 Calculated Osmolality 281 281 Calcium 9.5 9.0 Corrected Calcium 9.5 9.0 Phosphorus 2.5 Magnesium 2.2 2.1 Total Bilirubin 0.4 0.4 Direct Bilirubin 0.1 AST 22 23 ALT 23 23 Alkaline Phosphatase 90 95 Troponin I < 0.002 C-Reactive Prot, Quant < 0.5 Total Protein 6.6 6.0 Albumin 4.6 4.1 D Globulin 2.0 L 1.9 L Albumin/Globulin Ratio 2.3 H 2.2 Beta-Hydroxybutyrate/Acetoacetate 0.2 Procalcitonin < 0.04 TSH 0.89 Ur Collection Type Clean Catch Urine Color Lt-Yellow Urine Clarity Clear Urine pH 6.5 Ur Specific [place] 1.025 Urine Protein Negative Urine Glucose (UA) 4+ A Urine Ketones Negative Urine Blood Negative Urine Nitrite Positive Urine Bilirubin Negative Urine Urobilinogen (Auto) Negative Ur Leukocyte Esterase Positive Urine RBC 1 Urine WBC 9 H Ur Squamous Epith Cells 2 Urine Bacteria 1+ A Ur Culture Indicated? Yes Quality Measures Quality Measures VTE prophylaxis Assessment & Plan Assessment Current Active Medications: Generic Name Dose Route Start Last Admin Trade Name Freq PRN Reason Stop Dose Admin Acetaminophen 650 mg 08/18/25 23:52 Acetaminophen 325 Mg Tablet PO 09/17/25 23:51 Q6H PRN Fever >101.5 or pain 1-3 Albuterol/Ipratropium 3 ml 08/19/25 00:12 Albuterol/Ipratropium (Duoneb) Rt Cindi 3 Ml Nebu INH 09/18/25 00:11 Q6H PRN SHORTNESS OF BREATH OR WHEEZE Carvedilol 6.25 mg 08/19/25 08:00 08/19/25 08:09 Carvedilol 12.5 Mg Tablet PO 09/18/25 07:59 6.25 mg BIDWM ERIN Administration Cyclobenzaprine HCl 5 mg 08/19/25 00:34 Cyclobenzaprine 5 Mg Tablet PO 09/18/25 00:33 TID PRN MUSCLE SPASMS Dextrose 25 ml 08/18/25 23:52 Dextrose 50%-Water Inj 50 Ml Syringe IV 09/17/25 23:51 Q15MIN PRN BG 50-70 responsive npo pt Dextrose 50 ml 08/18/25 23:52 Dextrose 50%-Water Inj 50 Ml Syringe IV 09/17/25 23:51 Q15MIN PRN BG <50 OR BG <70 & pt unresponsive Enoxaparin Sodium 40 mg 08/19/25 09:00 08/19/25 08:09 Enoxaparin Sod Inj 40 Mg/0.4 Ml Syringe SC 09/02/25 08:59 40 mg QDAY ERIN Administration Gabapentin 100 mg 08/19/25 09:00 08/19/25 08:09 Gabapentin 100 Mg Capsule PO 09/18/25 08:59 100 mg BID ERIN Administration Glucagon 1 mg 08/18/25 23:52 Glucagon Inj 1 Mg Vial IM Q15MIN PRN BG <70, and no IV access Insulin Human Lispro 0 unit 08/19/25 11:30 08/19/25 11:39 Insulin Lispro (Admelog) 1 Unit/0.01 Ml Unit SC 09/18/25 11:29 Not Given ACHS ERIN Protocol Ondansetron HCl 4 mg 08/18/25 23:52 Ondansetron Inj 2 Mg/Ml Inj 2 Ml IVP 09/17/25 23:51 Q6H PRN NAUSEA OR VOMITING Protocol Sennosides 1 tab 08/19/25 09:00 Senna/Docusate Sod 1 Tab Tablet PO 09/18/25 08:59 QDAY PRN CONSTIPATION Protocol Plan This patient is a 58-year-old female with a history of fxd-ibujkha-wrjupajeo type 2 diabetes mellitus, asthma, and hypertension who presented to [facility] ED on 08/18 with headache and dizziness. Patient was admitted under observation for management of hypoglycemia. #Glipizide induced recurrent hypoglycemia #Headache and dizziness #Syh-qetmawu-gplbbstiq type 2 diabetes mellitus Patient presented with headache and dizziness and was found to have low blood glucose in ED. Blood glucose initially 70 in ED. Bedside blood glucose on admission was 108 Hemoglobin A1c 5.2% CT head 08/18 negative for acute findings Plan: - Sliding scale insulin - Regular diet given hemoglobin A1c within normal limits - Bedside glucose checks every 6 hours - Tylenol and Zofran as needed for headache and dizziness respectively - Referral to registered dietitian #Glucosuria #Asymptomatic bacteriuria Although the patient does not endorse a history of taking any other medication besides Ozempic and glipizide, outside pharmacy the prescription data shows that the patient was recently prescribed empagliflozin. Patient denies any dysuria, urinary retention, or urinary frequency. Urinalysis in ED showed 4+ urine glucose, 9 urine WBC, positive leukocyte esterase, and 1+ urine bacteria Plan: - Per IDSA guidelines, it is not recommended to treat asymptomatic bacteriuria in non females - Patient will follow-up outpatient #Hypertension Patient endorses a history of hypertension. Does not know what medication she takes. Plan: - chronic medical problem - Continue home carvedilol 6.25 mg twice daily #Asthma - chronic medical problem. - DuoNebs every 6 hours as needed Health maintenance Dispo: Likely DC home tmr if BG stable overnight DVT prophylaxis: Lovenox GI prophylaxis: N/A Antibiotics: N/A Bowel Regimen: Sennokot PRN Diet: Regular diet Lines: Peripheral IV Code status: Full code Case discussed with my senior resident Dr. Loomis Case discussed with my attending Dr. Doug Villagomez, DO PGY 1 Attending Provider Attestation/Addendum I have seen and examined the patient. I was physically present for the green portions of the services provided including history, physical exam, diagnosis, treatment plans and orders. I agree with assessment and plan of care as documented by residents. Patient is a 60 years old female with past medical history of diabetes mellitus, asthma, hypertension who presented to the ED with complaint of low blood Leukos, dizziness and headaches. Was admitted overnight on observation for recurrent hypoglycemia with episodes of dizziness. At bedside this morning patient appears comfortable and denies any new complaints. States that her dizziness has improved significantly. Noted to have A1c of 5.2, bedside blood glucose was 105. Patient is on semaglutide, glipizide for diabetes. She also mentioned that she has dizziness whenever she tries to stand up from sitting position, we will obtain static vitals, monitor her glucose levels closely. Anticipate discharge in next 24 to 48 hours if glucoses remain stable and patient remained asymptomatic. Even though this this note was carefully revised there may still be minor errors in fence erector supervisor due to voice recognition software. Alek Camacho MD
[2025-08-19 20:11] LABS: Amphetamine/Methamp Scrn,U Negative (Negative); Barbiturate Screen,Urine Negative (Negative); Benzodiazepines Screen,Urine Negative (Negative); Benzoylecgonine Screen, Ur Negative (Negative); Fentanyl Screen,Urine Negative (Negative); Opiate Screen,Urine Negative (Negative); THC Screen,Urine Negative (Negative)
[2025-08-20] VITALS: BP 133/83; PULSE 92; RESP 18; TEMP 36.1; O2SAT 96
[2025-08-20 03:59] VITALS: BP 123/72; PULSE 78; RESP 18; TEMP 36.1; O2SAT 96
[2025-08-20 05:33] VITALS: BMI 31.2
[2025-08-20 06:43] LABS: Basophils # (Auto) 0.0 Thou/mm3 (0.0-0.2); Basophils % (Auto) 0 % (0-2.5); Eosinophils # (Auto) 0.2 Thou/mm3 (0.0-0.5); Eosinophils % (Auto) 3 % (0-10); Hematocrit 41.3 % (36.0-46.0); Hemoglobin 13.1 g/dL (12.0-16.0); Immature Granulocytes Auto 0.01 Thou/mm3 (0.00-0.00); Lymphocytes # (Auto) 1.5 Thou/mm3 (1.0-4.8); Lymphocytes % (Auto) 25 % (10-50); Mean Corpuscular HGB Conc 31.7 g/dl (31.0-37.0); Mean Corpuscular Hemoglobin 25.2 pg (25.0-35.0); Mean Corpuscular Volume 79 fL (80-100); Monocytes # (Auto) 0.6 Thou/mm3 (0.0-0.8); Monocytes % (Auto) 11 % (0-12); Neutrophils # (Auto) 3.8 Thou/mm3 (1.8-7.7); Neutrophils % (Auto) 61 % (37-80); Nucleated Red Blood Cell # 0.00 Thou/mm3 (0.00-0.00); Nucleated Red Blood Cell % 0 /100 WBC (0); Platelet Count 201 Thou/mm3 (140-440); RDW Standard Deviation 39.4 fL (36.4-46.3); Red Blood Count 5.20 Miln/mm3 (4.00-5.20); White Blood Count 6.1 Thou/mm3 (3.6-11.0)
[2025-08-20 07:33] LABS: Alanine Aminotransferase 30 U/L (10-49); Albumin, Serum 3.9 gm/dL (3.4-4.8); Albumin/Globulin Ratio 2.1 (1.2-2.2); Alkaline Phosphatase 79 U/L (46-116); Anion Gap 10 (7-16); Aspartate Amino Transferase 33 U/L (0-34); BUN/Creatinine Ratio 14 Ratio (12-20); Bilirubin,Total 0.4 mg/dL (0.3-1.2); Blood Urea Nitrogen 11 mg/dL (9-23); Calcium 8.8 mg/dL (8.3-10.6); Calcium (Corrected) 8.9 mg/dL (8.5-10.1); Carbon Dioxide 28.4 mMol/L (20.0-31.0); Chloride 105 mMol/L (98-107); Creatinine (Component) 0.8 mg/dL (0.6-1.3); Estimated Creatinine Clearance 81.5 mL/min (>60); Globulin 1.9 gm/dL (2.3-3.5); Glucose 106 mg/dL (74-106); Magnesium 2.2 mg/dL (1.6-2.6); Osmolality,Calculated 284 (275-295); Phosphorous 3.3 mg/dL (2.4-5.1); Potassium 4.4 mMol/L (3.4-5.1); Sodium 143 mMol/L (136-145); Total Protein 5.8 gm/dL (5.7-8.2); eGFR > 60 See Note
[2025-08-20 08:00] VITALS: BP 130/82; PULSE 86; RESP 18; TEMP 36.3; O2SAT 97
[2025-08-20] MEDS: ENOXAPARIN SOD INJ 40 MG/0.4 ML SYRINGE SC (08:00)
[2025-08-20] MEDS: GABAPENTIN 100 MG CAPSULE PO (08:00)
[2025-08-20 08:30] VITALS: BP 130/82; PULSE 86
[2025-08-20 09:11] VITALS: BMI 31.2
--- NOTE | 2025-08-20 09:33 | ESDS_ITS ---
<Statement entered by Delio Kern MD - 08/20/25 13:33> Patient was examined and case was reviewed with team including attending physician. Note reviewed, I agree with most of its contents and agree with the patient's care as documented by Dr. Hernando Kern MD PGY-2 Planned Discharge Date 08/20/25 DS: Providers Provider Date of admission: 08/18/25 23:53 Primary care physician: Nilo Kern MD Admitting Provider: Suri Cheung MD Attending Provider on Admission: Suri Cheung MD Consults: 08/18/25 23:57 Referral Registered Dietitian Routine Comment: Attending Provider on DC: Abiodun Jones MD Discharging Provider: Levon Villagomez DO Anticipated date of discharge: 08/20/25 DS: Diagnosis Problem List Completed Was Problem List Reviewed/Reconciled?: Yes Hospital Course Hospital Course Hospital course: Mrs. Mak is a 58F with history of DM, asthma, and hypertension presented initially on 08/18/25 for hypoglycemia and dizziness. She reported that she continued to take oral medication despite noted to have low blood glucose levels. She's taking ozempic, glipizide, and Synjardy at home. Her A1c is 5.2 with no recent medications change. She was admitted for hypoglycemia management. Of note, her urinalysis showed 4+ glucosuria, 9 WBC, 1+ bacteria. Denied dysuria or urinary frequency, therefore, does not warrant treatment for asymptomatic bacteriuria per IDSA guidelines. Her blood sugar continued to be stable during this admission, no hypoglycemic episodes. Her dizziness had greatly improved by the time of discharge, she was walking independently to the restroom with steady gait and good balance. We have discontinued her glipizide given her risk of hypoglycemia with A1c level of 5.2, and discontinued her Synjardy to prevent risk of UTI. She will continue her ozempic and added metformin 1000mg BID for her DM control. At this time, patient is medically and physically stable for discharge for home. All questions and concerns addressed, plan of care discussed with patient, return precautions given. Diagnosis: #Glipizide induced recurrent hypoglycemia #Headache and dizziness #[id number] type 2 diabetes mellitus #Glucosuria #Asymptomatic bacteriuria #Hypertension #Asthma Discharge Plan: Follow up with primary care physician within 1 week of discharge Instructions have been explained to the patient with regards to their medications and how to take them. Patient was able to explain back to physician and nursing staff how to take their medications. Patient expressed understanding with instructions. New Medications: Please take metformin 1000mg twice daily for your diabetes. We stopped glipizide as this can contribute to your hypoglycemia. We stopped Synjardy as this can contribute to your UTI. Continue to take the rest of your medications as prescribed by your primary care physician. Patient has been explained that should any symptoms recur or worsen patient is instructed to return to the Emergency Department. Case discussed with my senior resident Dr. Loomis Case discussed with my attending Dr. Karen Villagomez, DO PGY 1 Status at Discharge Overall status at discharge: patient is back to baseline Time Spent with Patient Time attestation: Total time spent providing and/or coordinating discharge services: Time spent: Greater than 30 minutes Exam Vital Signs Temp Pulse Resp BP Pulse Ox O2 Del Method 97.3 F 86 18 130/82 97 Room Air 08/20/25 08:00 08/20/25 08:30 08/20/25 08:00 08/20/25 08:30 08/20/25 08:00 08/20/25 08:00 Narrative Exam General: Awake and in no acute distress. A/O x 3. Conversational. Ambulate independently HEENT: Normocephalic, atraumatic. Heart: Regular rate and rhythm Lungs: Clear to auscultation with no wheezing or crackles. Abdomen: Soft, nondistended, nontender. No guarding or rebound tenderness. Neurologic: Alert and oriented x3, no gross neurological deficit, and patient able to move all 4 extremities. Extremities: No pitting edema Skin: No rash. Dry, clean, and intact. No ecchymoses. Discharge Plan Plan Patient Disposition: HOME (Self Care) Care Plan Goals: Follow up with primary care physician within 1 week of discharge Instructions have been explained to the patient with regards to their medications and how to take them. Patient was able to explain back to physician and nursing staff how to take their medications. Patient expressed understanding with instructions. New Medications: Please take metformin 1000mg PO BID for your diabetes. We stopped glipizide as this can contribute to your hypoglycemia. We stopped Synjardy as this can contribute to your UTI. Continue to take the rest of your medications as prescribed by your primary care physician. Patient has been explained that should any symptoms recur or worsen patient is instructed to return to the Emergency Department. Prescriptions/Referrals Prescriptions/Med Rec: New metformin 1,000 mg tablet 1,000 mg PO BID Qty: 60 1RF metformin 1,000 mg tablet 1,000 mg PO BID Qty: 60 1RF Continued atorvastatin 20 mg tablet 20 mg PO QDAY budesonide 0.5 mg/2 mL suspension for nebulization 0.5 mg inhalation BID cetirizine 10 mg tablet 10 mg PO QDAY mirabegron [Myrbetriq] 50 mg tablet extended release 24 hr 50 mg PO QDAY Ozempic 1 mg/dose (4 mg/3 mL) pen injector 1 mg subcut QWEEK montelukast 10 mg tablet 10 mg PO QDAY theophylline 300 mg tablet extended release 12 hr 300 mg PO DAILY acetaminophen 500 mg tablet 500 mg PO Q6H PRN (Reason: pain) gabapentin 100 mg capsule 100 mg PO Q12H hydrochlorothiazide 25 mg tablet 25 mg PO QDAY losartan 100 mg tablet 100 mg PO QDAY aspirin 81 mg tablet,delayed release (DR/EC) 81 mg PO DAILY Patient Comments: TAKE 1 TABLET BY MOUTH EVERY DAY carvedilol [Coreg] 6.25 mg tablet 6.25 mg PO BID Rx Instructions: must administer with a meal/food umeclidinium-vilanterol [Anoro Ellipta] 62.5-25 mcg/actuation blister with device 1 inh inhalation QDAY cyclobenzaprine 5 mg tablet 5 mg PO TID PRN (Reason: muscle spasm) Qty: 15 0RF omeprazole 40 mg capsule,delayed release(DR/EC) 40 mg PO DAILY Patient Comments: TAKE 1 CAPSULE 1/2 TO 1 HOUR BEFORE MORNING MEAL ORALLY ONCE A DAY potassium chloride 20 mEq tablet extended release 20 meq PO DAILY Patient Comments: TAKE 1 TABLET BY MOUTH EVERY DAY cholecalciferol (vitamin D3) 250 mcg (10,000 unit) capsule 10,000 unit PO QWEEK Qty: 10 0RF Discontinued glipizide 5 mg tablet 5 mg PO QDAY Synjardy 5-500 mg tablet 1 tab PO BID Patient Comments: TAKE 1 TABLET BY MOUTH TWICE A DAY WITH MEALS FOR 90 DAYS Referrals: Nilo Kern MD [Primary Care Provider, [facility]] Patient/Caregiver Discharge Instructions Print Language: Turkish Stand Alone Forms: [employer] Award Info., Patient Portal Info Letter, Work/Release Restrictions Discharge Order Discharge Orders: Discharge (Routine); Ordered 08/20/25 Ordered By: Levon Villagomez Quality Discharge Quality Measures none
[2025-08-20 12:00] VITALS: BP 140/86; PULSE 86; RESP 16; TEMP 36.4; O2SAT 97
[2025-08-20 13:02] VITALS: PULSE 88; RESP 18; RESP 96
== END 2025-08-20 13:38 | disposition home or self-care (01) ==
LOC: SERX 08-19 00:04 → S2NX 08-19 09:54 → SERHOLD 08-20 09:29 → S2NX 08-20 09:30 → S3SX 08-20 09:30
PROVIDERS: Admitting Provider Student in an Organized Health Care Education/Training Program; Emergency Provider Emergency Medicine; PCP Family Medicine; Visit Provider Student in an Organized Health Care Education/Training Program
DX: E11.649 Type 2 diabetes mellitus with hypoglycemia without coma (principal); J45.909 Unspecified asthma, uncomplicated; R81 Glycosuria; I10 Essential (primary) hypertension; R51.9 Headache, unspecified; R42 Dizziness and giddiness
CPT/HCPCS: 36415; 70450; 71045; 80053; 80307; 81001; 82010; 82248; 83036; 83735; 84100; 84145; 84443; 84484; 85025; 85610; 85652; 85730; 86140; 87077; 87086; 87186; 93005; 96372; 99283; G0378; J1650; A9270